=== PATIENT | female | born 1970 | race American Indian/Alaskan Native ===

== ENCOUNTER 2016-08-04 08:33 | Emergency (ER) | payer OTHER ==
[2016-08-04 08:37] VITALS: BMI 21.1
[2016-08-04 09:45] LABS: URINE APPEARANCE SLCLOUDY; URINE BILIRUBIN NEGATIVE (NEGATIVE); URINE COLOR STRAW; URINE GLUCOSE (UA) 3+ (NEGATIVE); URINE KETONE NEGATIVE (NEGATIVE); URINE NITRITE NEGATIVE (NEGATIVE); URINE UROBILINOGEN NEGATIVE E.U./dl (0.2-1.0)
[2016-08-04 09:57] LABS: URINE BLOOD 1+ (NEGATIVE); URINE LEUK ESTERASE 3+ (NEGATIVE); URINE PROTEIN 1+ (NEGATIVE)
--- NOTE | 2016-08-04 09:58 | PDOC ---
History of Present Illness - General History Source: Patient Exam Limitations: No Limitations - History of Present Illness Initial Comments: 08/04/16 10:07 The patient is a 62 year old female, with a significant past medical history of diabetes, hypertension, hyperlipidemia, hypothyroidism, and GERD, who presents to the emergency department complaining of abdominal pain since approximately 02 :00. Patient reports her abdominal pain is diffuse and constant. She reports associated dysuria and urinary frequency, but denies any flank pain, hematuria, or urgency. She reports decrease in appetite secondary to pain. The patient reports her last meal was at approximately 19:00 yesterday. The patient denies any nausea, vomiting, diarrhea, or constipation. Patient reports this is similar to an abdominal pain shes had in the past, which went away after she drank water, but not during this instance. She reports no alleviating or exacerbating factors. The patient denies any fever or chills. The patient denies any chest pain, shortness of breath, diaphoresis or palpitations. Allergies: None reported. Past Surgical History: None reported. Social History: Non-smoker. Denies alcohol or drug use. PCP: Dr. Ulrich <Magdy Joseph - Last Filed: 08/04/16 11:45> <Layla Ortega - Last Filed: 08/04/16 16:18> - General Chief Complaint: Urinary Problem Stated Complaint: Burning urine,pelvic pain Time Seen by Provider: 08/04/16 08:51 Past History <Magdy Joseph - Last Filed: 08/04/16 11:45> - Past Medical History Other medical history: denies - Psycho/Social/Smoking Cessation Hx Suicidal Ideation: No Smoking History: Never smoked Information on smoking cessation initiated: No Hx Alcohol Use: No Drug/Substance Use Hx: No Substance Use Type: None <Layla Ortega - Last Filed: 08/04/16 16:18> - Past Medical History Allergies/Adverse Reactions: Allergies Allergy/AdvReac Type Severity Reaction Status Date / Time No Known Allergies Allergy Verified 08/04/16 08:38 Home Medications: Ambulatory Orders Cephalexin Monohydrate [Keflex -] 500 mg PO BID #14 capsule 08/04/16 Enalapril Maleate 2.5 mg PO DAILY 08/04/16 Gemfibrozil 600 mg PO DAILY 08/04/16 Levothyroxine [Synthroid -] 50 mcg PO DAILY 08/04/16 Metformin HCl 500 mg PO BID 08/04/16 Nateglinide [Starlix (Nf)] 60 mg PO DAILY 08/04/16 Pantoprazole Sodium 40 mg PO DAILY 08/04/16 Phenazopyridine HCl [Pyridium] 100 mg PO TID PRN #6 tablet 08/04/16 Sitagliptin Phosphate [Januvia] 100 mg PO DAILY 08/04/16 Review of Systems - Review of Systems Able to Perform ROS?: Yes Comments:: 08/04/16 10:07 GENERAL/CONSTITUTIONAL: No fever or chills. No weakness. HEAD, EYES, EARS, NOSE AND THROAT: No change in vision. No ear pain or discharge. No sore throat. CARDIOVASCULAR: No chest pain or shortness of breath. RESPIRATORY: No cough, wheezing, or hemoptysis. GASTROINTESTINAL: Yes: +abdominal pain. No nausea, vomiting, diarrhea or constipation. GENITOURINARY: Yes: +dysuria, +frequency. No hematuria. MUSCULOSKELETAL: No joint or muscle swelling or pain. No neck or back pain. SKIN: No rash NEUROLOGIC: No headache, vertigo, loss of consciousness, or change in strength/ sensation. ENDOCRINE: No increased thirst. No abnormal weight change. HEMATOLOGIC/LYMPHATIC: No anemia, easy bleeding, or history of blood clots. ALLERGIC/IMMUNOLOGIC: No hives or skin allergy. <Magdy Joseph - Last Filed: 08/04/16 11:45> *Physical Exam - Vital Signs Last Vital Signs Temp Pulse Resp BP Pulse Ox 98 F 85 18 120/80 100 08/04/16 08:36 08/04/16 08:36 08/04/16 08:36 08/04/16 08:36 08/04/16 08:36 - Physical Exam Comments: 08/04/16 10:07 GENERAL: Awake, alert, and fully oriented, in no acute distress HEAD: No signs of trauma EYES: PERRLA, EOMI, sclera anicteric, conjunctiva clear ENT: Auricles normal inspection, hearing grossly normal, nares patent, oropharynx clear without exudates. Moist mucosa NECK: Normal ROM, supple, no lymphadenopathy, JVD, or masses LUNGS: Breath sounds equal, clear to auscultation bilaterally. No wheezes, and no crackles HEART: Regular rate and rhythm, normal S1 and S2, no murmurs, rubs or gallops ABDOMEN: Suprapubic tenderness. No CVA tenderness.Normoactive bowel sounds. No guarding, no rebound. No masses EXTREMITIES: Normal range of motion, no edema. No clubbing or cyanosis. No cords, erythema, or tenderness NEUROLOGICAL: Cranial nerves II through XII grossly intact. Normal speech, normal gait SKIN: Warm, Dry, normal turgor, no rashes or lesions noted. <Magdy Joseph - Last Filed: 08/04/16 11:45> - Vital Signs Last Vital Signs Temp Pulse Resp BP Pulse Ox 98 F 85 18 120/80 100 08/04/16 08:36 08/04/16 08:36 08/04/16 08:36 08/04/16 08:36 08/04/16 08:36 <Layla Ortega - Last Filed: 08/04/16 16:18> ED Treatment Course - LABORATORY CBC & Chemistry Diagram: 08/04/16 10:20 08/04/16 10:20 - ADDITIONAL ORDERS Additional order review: Laboratory Results 08/04/16 09:00 Urine Color Straw Urine Appearance Slcloudy Urine pH 6.0 Ur Specific [place] 1.008 Urine Protein 1+ H Urine Glucose (UA) 3+ H Urine Ketones Negative Urine Blood 1+ H Urine Nitrite Negative Urine Bilirubin Negative Urine Urobilinogen Negative Ur Leukocyte Esterase 3+ H Urine HCG, Qual Negative <Magdy Joseph - Last Filed: 08/04/16 11:45> - LABORATORY CBC & Chemistry Diagram: 08/04/16 10:20 08/04/16 10:20 - ADDITIONAL ORDERS Additional order review: Laboratory Results 08/04/16 09:00 Urine Color Straw Urine Appearance Slcloudy Urine pH 6.0 Ur Specific [place] 1.008 Urine Protein 1+ H Urine Glucose (UA) 3+ H Urine Ketones Negative Urine Blood 1+ H Urine Nitrite Negative Urine Bilirubin Negative Urine Urobilinogen Negative Ur Leukocyte Esterase 3+ H Urine HCG, Qual Negative <Layla Ortega - Last Filed: 08/04/16 16:18> Medical Decision Making - Medical Decision Making Pt found to have elevated blood glucose, UTI. She improved with IV NSS x2L with improved blood glucose. Also received toradol, rocephin, tylenol, and pyridium. I offered PO challenge, which she tolerated. No signs of pyelonephritis. Stable for DC home. <Layla Ortega - Last Filed: 08/04/16 16:18> *DC/Admit/Observation/Transfer - Attestations Scribe Attestion: 08/04/16 10:08 Documentation prepared by Magdy Joseph, acting as medical instructor for Layla Ortega MD. <Magdy Joseph - Last Filed: 08/04/16 11:45> - Discharge Dispostion Admit: No <Layla Ortega - Last Filed: 08/04/16 16:18> Diagnosis at time of Disposition: Hyperglycemia UTI (urinary tract infection) Qualifiers: Urinary tract infection type: acute cystitis Hematuria presence: without hematuria Qualified Code(s): N30.00 - Acute cystitis without hematuria - Discharge Dispostion Disposition: HOME Condition at time of disposition: Improved - Prescriptions Prescriptions: Cephalexin Monohydrate [Keflex -] 500 mg PO BID #14 capsule Phenazopyridine HCl [Pyridium] 100 mg PO TID PRN #6 tablet PRN Reason: painful urination - Referrals Referrals: Dom Ulrich [Primary Care Provider] - - Patient Instructions Printed Discharge Instructions: DI for Urinary Tract Infection (UTI), DI for Hyperglycemia -- Adult
[2016-08-04] MEDS ORDERED: KETOROLAC TROMETHAMINE 15 MG/ML VIAL IVPUSH ONE (09:59)
[2016-08-04] MEDS ORDERED: SODIUM CHLORIDE 1,000 ML IV STA ×2 (09:59→11:01)
[2016-08-04] MEDS ORDERED: KETOROLAC TROMETHAMINE 15 MG/ML VIAL ONE (10:06)
[2016-08-04 10:17] LABS: URINE RBC 8 /hpf (0-3); URINE WBC 163 /hpf (3-5)
[2016-08-04] MEDS ORDERED: CEFTRIAXONE 1 GM in DEXTROSE 5%-WATER - 50 ML IVPB ONE (10:28)
[2016-08-04 10:38] LABS: BASOPHIL 0.5 % (0-2.0); EOSINOPHIL 0.3 % (0-4.5); MCH 28.5 pg (25.7-33.7); MCHC 34.4 g/dl (32.0-36.0); MEAN CELL VOLUME 82.9 fl (80-96); MEAN PLT VOLUME 7.7 fl (7.5-11.1); NEUTROPHILS 83.2 % (42.8-82.8); PLATELET COUNT 314 K/MM3 (134-434)
[2016-08-04 10:58] LABS: ALBUMIN 3.8 g/dl (3.4-5.0); ALK PHOS 91 U/L (45-117); ANION GAP 11 (8-16); BILIRUBIN,TOTAL 0.3 mg/dL (0.2-1.0); CALCIUM 9.5 mg/dL (8.5-10.1); CO2 26 mmol/L (21-32); CREATININE 0.7 mg/dL (0.55-1.02); SGOT/AST 17 U/L (15-37); SGPT/ALT 24 U/L (12-78); TOT PROT 7.5 g/dl (6.4-8.2)
[2016-08-04 11:03] LABS: GLUCOSE,RANDOM 321 mg/dL (74-106)
[2016-08-04] MEDS ORDERED: CEFTRIAXONE 50 ML ONE (11:07)
[2016-08-04] MEDS ORDERED: ACETAMINOPHEN 1000 MG/100 ML VIAL (NON FORMULARY) IVPB ONE (13:28)
[2016-08-04] MEDS ORDERED: ACETAMINOPHEN INJECTION 100 ML IVPB ONE (13:36)
[2016-08-04] MEDS ORDERED: HEMOQUE TEST 1 EACH EACH ONE (13:37)
[2016-08-04] MEDS ORDERED: PHENAZOPYRIDINE HCL 100 MG TABLET (FP) PO ONE (14:35)
[2016-08-04] MEDS ORDERED: PHENAZOPYRIDINE HCL 100 MG TABLET (FP) ONE (14:59)
[2016-08-04 15:13] VITALS: BP 109/78; PULSE 89; TEMP 97.9
== END 2016-08-04 15:12 | disposition home or self-care (01) ==
LOC: JER 08:33
PROC: 3E0337Z Introduction of Electrolytic and Water Balance Substance into Peripheral Vein, Percutaneous Approach (ICD-10-PCS; principal; 2016-08-04)
PROC: 3E033NZ Introduction of Analgesics, Hypnotics, Sedatives into Peripheral Vein, Percutaneous Approach (ICD-10-PCS; 2016-08-04)
DX: N30.00 Acute cystitis without hematuria (principal); E11.65 Type 2 diabetes mellitus with hyperglycemia; Z79.84 Long term (current) use of oral hypoglycemic drugs; I10 Essential (primary) hypertension; E03.9 Hypothyroidism, unspecified; E78.00 Pure hypercholesterolemia, unspecified; K21.9 Gastro-esophageal reflux disease without esophagitis
CPT/HCPCS: 36415; 80053; 81003; 81015; 84703; 85025; 87086; 87186; 96361; 96374; 99283-25

== ENCOUNTER 2016-08-07 00:55 | Emergency (ER) | payer OTHER ==
[2016-08-07 01:14] VITALS: BP 136/72; PULSE 89; TEMP 98.4; BMI 25.4
--- NOTE | 2016-08-07 02:14 | PDOC ---
History of Present Illness - General Stated Complaint: PAIN Time Seen by Provider: 08/07/16 01:10 History Source: Patient, Family Exam Limitations: No Limitations - History of Present Illness Travel History: No Initial Comments: 08/07/16 02:11 46yo Female patient presents to ED c/o dysuria, burning, frequency, pressure, cramping, getting worse since 9pm. Patient state she was seen in this ED and diagnosed with UTI. Patient denies vaginal bleeding, back pain, fever, chills, n /v/d, or any other complaints at this time. LNMP: 08-04-2016 Timing/Duration: reports: getting worse, changing over time Quality: reports: moderate Abdominal Pain Onset Location: reports: suprapubic Pain Radiation: reports: no radiation Activities at Onset: reports: no specific activity Treatment Prior to Arrive: worse with: analgesics, antacids, cold pack, heat, laxative, enema, other Aggravating Factors: worse with: None, Defecation, Eating, Emotional upset, Exertion, [place], Movement, Voiding, Change in position Alleviating Factors: worse with: None, Belching, Shallow Breathing, Defecation, Eating, Holding Breath, Passing Gas, Change in Position, Rest, Voiding, Vomiting Past History - Travel Traveled outside of the country in the last 30 days: No Close contact w/someone who was outside of country & ill: No - Past Medical History Allergies/Adverse Reactions: Allergies Allergy/AdvReac Type Severity Reaction Status Date / Time No Known Allergies Allergy Verified 08/07/16 01:08 Home Medications: Ambulatory Orders Cephalexin Monohydrate [Keflex -] 500 mg PO BID #14 capsule 08/04/16 Enalapril Maleate 2.5 mg PO DAILY 08/04/16 Gemfibrozil 600 mg PO DAILY 08/04/16 Levothyroxine [Synthroid -] 50 mcg PO DAILY 08/04/16 Metformin HCl 500 mg PO BID 08/04/16 Nateglinide [Starlix (Nf)] 60 mg PO DAILY 08/04/16 Pantoprazole Sodium 40 mg PO DAILY 08/04/16 Phenazopyridine HCl [Pyridium] 100 mg PO TID PRN #6 tablet 08/04/16 Sitagliptin Phosphate [Januvia] 100 mg PO DAILY 08/04/16 Levofloxacin [Levaquin] 500 mg PO DAILY #7 tablet 08/07/16 Phenazopyridine HCl [Pyridium] 100 mg PO TID #9 tablet 08/07/16 - Psycho/Social/Smoking Cessation Hx Suicidal Ideation: No Smoking History: Former smoker Have you smoked in the past 12 months: No Information on smoking cessation initiated: No Hx Alcohol Use: No Drug/Substance Use Hx: No Substance Use Type: None Abd/GI Specific PMHX - Complaint Specific PMHX Colitis: No Diverticulitis: No Gall Bladder Disease: No GERD: No Hepatitis: No Irritable Bowel Synd (IBS): No Pancreatitis: No GI Ulcer Disease: No Review of Systems - Review of Systems Able to Perform ROS?: Yes Is the patient limited [place]alander proficient: No Constitutional: No: Chills, Fever, Weakness Respiratory: No: Cough, Shortness of Breath, Stridor, Wheezing Cardiac (ROS): No: Chest Pain ABD/GI: Yes: Abdominal cramping. No: Constipated, Diarrhea, Nausea, Poor Appetite, Poor Fluid Intake, Rectal Bleeding, Vomiting : Yes: Burning, Dysuria, Frequency, Pain, Urgency. No: Discharge, Flank Pain , Hematuria Musculoskeletal: No: Back Pain Integumentary: No: Bruising, Erythema, Rash Neurological: No: Headache, Seizure, Ataxia, Dizziness All Other Systems: Reviewed and Negative *Physical Exam - Vital Signs Last Vital Signs Temp Pulse Resp BP Pulse Ox 98.4 F 89 20 136/72 98 08/07/16 01:08 08/07/16 01:08 08/07/16 01:08 08/07/16 01:08 08/07/16 01:08 - Physical Exam General Appearance: Yes: Nourished, Appropriately Dressed. No: Apparent Distress, Mild Distress, Moderate Distress, Severe Distress Neck: positive: Trachea midline, Supple. negative: Lymphadenopathy (R), Lymphadenopathy (L) Respiratory/Chest: positive: Lungs Clear, Normal Breath Sounds. negative: Respiratory Distress, Accessory Muscle Use, Labored Respiration, Rapid RR, Stridor, Wheezing Cardiovascular: positive: Regular Rhythm, Regular Rate Gastrointestinal/Abdominal: positive: Tender, Soft, Decreased BS, Tenderness ( Lower Pelvic). negative: Distended, Guarding, Rebound Musculoskeletal: positive: Normal Inspection. negative: CVA Tenderness, Vertebral Tenderness Extremity: positive: Normal Capillary Refill, Normal Inspection, Normal Range of Motion. negative: Swelling, Calf Tenderness, Erythema, Inflammation Integumentary: positive: Normal Color, Dry, Warm Neurologic: positive: custom shoemaker II-XII NML intact, Fully Oriented, Alert, Normal Mood/ Affect, Normal Response, Motor Strength 5/5 *DC/Admit/Observation/Transfer Diagnosis at time of Disposition: Symptoms of urinary tract infection - Discharge Dispostion Disposition: HOME Condition at time of disposition: Stable Admit: No - Prescriptions Prescriptions: Levofloxacin [Levaquin] 500 mg PO DAILY #7 tablet Phenazopyridine HCl [Pyridium] 100 mg PO TID #9 tablet - Patient Instructions Printed Discharge Instructions: DI for Urinary Tract Infection (UTI) Additional Instructions: FOLLOW UP WITH DR. CHUA THIS WEEK. CALL TO SCHEDULE CLOSER APPOINTMENT IF YOU CAN. STOP KEFELX AND START LEVAQUIN. DRINK PLENTY FLUIDS AND CHECK BLOOD SUGAR BEFORE EACH MEAL. IF YOUR SYMPTOMS WORSEN, SUCH NAUSEA, VOMITING, BACK PAIN, FEVER, CHILLS, CHEST PAIN, DIFFICULTY BREATHING, WORSENING ABDOMINAL PAIN , RETURN FOR EVALUATION. Print Language: NEPALI
[2016-08-07 02:22] LABS: URINE APPEARANCE CLEAR; URINE BILIRUBIN NEGATIVE (NEGATIVE); URINE BLOOD NEGATIVE (NEGATIVE); URINE COLOR LTYELLOW; URINE GLUCOSE (UA) 2+ (NEGATIVE); URINE KETONE NEGATIVE (NEGATIVE); URINE LEUK ESTERASE NEGATIVE (NEGATIVE); URINE NITRITE NEGATIVE (NEGATIVE); URINE PROTEIN NEGATIVE (NEGATIVE); URINE UROBILINOGEN NEGATIVE E.U./dl (0.2-1.0)
[2016-08-07] MEDS ORDERED: HEMOQUE TEST 1 EACH EACH ONE (03:08)
[2016-08-07] MEDS ORDERED: PHENAZOPYRIDINE HCL 100 MG TABLET (FP) PO ONE (03:40)
[2016-08-07] MEDS ORDERED: PHENAZOPYRIDINE HCL 100 MG TABLET (FP) ONE (03:44)
[2016-08-07] MEDS ORDERED: LEVOFLOXACIN 500 MG TABLET (FP) ONE (03:45)
[2016-08-07] MEDS ORDERED: LEVOFLOXACIN 250 MG TABLET (FP) ONE (03:45)
[2016-08-07] MEDS ORDERED: LEVOFLOXACIN 250 MG TABLET (FP) PO SCH (10:00)
== END 2016-08-07 03:49 | disposition home or self-care (01) ==
LOC: JER 00:55
DX: N39.0 Urinary tract infection, site not specified (principal); E11.9 Type 2 diabetes mellitus without complications; Z79.84 Long term (current) use of oral hypoglycemic drugs
CPT/HCPCS: 81003; 84703; 87086; 99281-25

== ENCOUNTER 2016-08-07 22:29 | Emergency (ER) | payer OTHER ==
[2016-08-07 22:50] VITALS: BP 112/79; PULSE 89; TEMP 98.3; BMI 21.1
--- NOTE | 2016-08-07 23:32 | PDOC ---
History of Present Illness - General Chief Complaint: Weakness Stated Complaint: WEAKNESS Time Seen by Provider: 08/07/16 23:31 History Source: Patient - History of Present Illness Initial Comments: 08/07/16 23:49 46 year old female this is the third visit to the ER for similar complaints. patient seen early am with symptoms of cystitis. patient started on levaquin. now with vomiting and suprapubic pain and right flank pain. Past History - Past Medical History Allergies/Adverse Reactions: Allergies Allergy/AdvReac Type Severity Reaction Status Date / Time No Known Allergies Allergy Verified 08/07/16 22:45 Home Medications: Ambulatory Orders Enalapril Maleate 2.5 mg PO DAILY 08/04/16 Levothyroxine [Synthroid -] 50 mcg PO DAILY 08/04/16 Metformin HCl 500 mg PO BID 08/04/16 Nateglinide [Starlix (Nf)] 60 mg PO DAILY 08/04/16 Pantoprazole Sodium 40 mg PO DAILY 08/04/16 Sitagliptin Phosphate [Januvia] 100 mg PO DAILY 08/04/16 Levofloxacin [Levaquin] 500 mg PO DAILY #7 tablet 08/07/16 Cefpodoxime Proxetil [Vantin -] 200 mg PO Q12H #20 tablet 08/08/16 Cefuroxime Axetil [Cefuroxime] 250 mg PO BID #20 tablet 08/08/16 Diabetes: Yes - Immunization History Immunization Up to Date: Yes - Psycho/Social/Smoking Cessation Hx Suicidal Ideation: No Smoking History: Never smoked Have you smoked in the past 12 months: No Information on smoking cessation initiated: No Hx Alcohol Use: No Drug/Substance Use Hx: No Substance Use Type: None Review of Systems - Review of Systems Able to Perform ROS?: Yes Is the patient limited Hebrew proficient: No ABD/GI: Yes: Nausea, Vomiting, Abdominal cramping : Yes: Dysuria, Flank Pain, Pain *Physical Exam - Vital Signs Last Vital Signs Temp Pulse Resp BP Pulse Ox 98.3 F 89 17 112/79 100 08/07/16 22:45 08/07/16 22:45 08/07/16 22:45 08/07/16 22:45 08/07/16 22:45 - Physical Exam General Appearance: Yes: Appropriately Dressed Respiratory/Chest: positive: Lungs Clear, Normal Breath Sounds Gastrointestinal/Abdominal: positive: Normal Bowel Sounds, Tender (suprapubic), Soft Musculoskeletal: positive: CVA Tenderness, CVA Tenderness (R) Extremity: positive: Normal Capillary Refill, Normal Inspection, Normal Range of Motion Integumentary: positive: Normal Color, Dry, Warm Neurologic: positive: Fully Oriented, Alert, Normal Mood/Affect ED Treatment Course - LABORATORY CBC & Chemistry Diagram: 08/07/16 23:50 08/08/16 03:55 Medical Decision Making - Medical Decision Making 08/08/16 03:41 patient is feeling better. will repeat sodium. repeat sodium is 131. *DC/Admit/Observation/Transfer Diagnosis at time of Disposition: Pyelonephritis, Hyponatremia - Discharge Dispostion Disposition: HOME - Prescriptions Prescriptions: Cefuroxime Axetil [Cefuroxime] 250 mg PO BID #20 tablet Cefpodoxime Proxetil [Vantin -] 200 mg PO Q12H #20 tablet - Referrals Referrals: Dom Ulrich [Primary Care Provider] - - Patient Instructions Printed Discharge Instructions: DI for Kidney Infection Additional Instructions: drink plenty of fluids continue Cefpodoxime as ordered/ complete the antibiotics follow up with your doctor as soon as possible. return to the ER if symptoms worsen.
[2016-08-07] MEDS ORDERED: SODIUM CHLORIDE 1,000 ML IV STA (23:34)
[2016-08-07] MEDS ORDERED: ONDANSETRON 4 MG/2 ML VIAL IVPB ONE (23:35)
--- NOTE | 2016-08-07 23:44 | PDOC ---
*Physical Exam - Vital Signs Last Vital Signs Temp Pulse Resp BP Pulse Ox 98.3 F 89 17 112/79 100 08/07/16 22:45 08/07/16 22:45 08/07/16 22:45 08/07/16 22:45 08/07/16 22:45 ED Treatment Course - LABORATORY CBC & Chemistry Diagram: 08/07/16 23:50 08/08/16 03:55 Medical Decision Making - Medical Decision Making 08/07/16 23:44 agree with care from SAMANTHA Menard *DC/Admit/Observation/Transfer Diagnosis at time of Disposition: Pyelonephritis - Discharge Dispostion Disposition: HOME - Prescriptions Prescriptions: Cefuroxime Axetil [Cefuroxime] 250 mg PO BID #20 tablet Cefpodoxime Proxetil [Vantin -] 200 mg PO Q12H #20 tablet - Referrals Referrals: Dom Ulrich [Primary Care Provider] - - Patient Instructions Printed Discharge Instructions: DI for Kidney Infection Additional Instructions: drink plenty of fluids continue Cefpodoxime as ordered/ complete the antibiotics follow up with your doctor as soon as possible. return to the ER if symptoms worsen.
[2016-08-08] MEDS ORDERED: ONDANSETRON 4 MG/2 ML VIAL ONE (00:01)
[2016-08-08] MEDS ORDERED: CEFTRIAXONE 1 GM in DEXTROSE 5%-WATER - 100 ML IVPB ONE (00:02)
[2016-08-08] MEDS ORDERED: CEFTRIAXONE 50 ML ONE (00:03)
[2016-08-08 00:35] LABS: URINE APPEARANCE CLEAR; URINE BILIRUBIN NEGATIVE (NEGATIVE); URINE BLOOD NEGATIVE (NEGATIVE); URINE COLOR AMBER; URINE GLUCOSE (UA) 3+ (NEGATIVE); URINE KETONE NEGATIVE (NEGATIVE); URINE LEUK ESTERASE NEGATIVE (NEGATIVE); URINE NITRITE POSITIVE (NEGATIVE); URINE UROBILINOGEN NEGATIVE E.U./dl (0.2-1.0)
[2016-08-08 00:35] LABS: BASOPHIL 0.3 % (0-2.0); EOSINOPHIL 0.6 % (0-4.5); MCH 28.4 pg (25.7-33.7); MCHC 35.3 g/dl (32.0-36.0); MEAN CELL VOLUME 80.4 fl (80-96); MEAN PLT VOLUME 8.1 fl (7.5-11.1); NEUTROPHILS 75.8 % (42.8-82.8); PLATELET COUNT 323 K/MM3 (134-434); RDW 13.2 % (11.6-15.6); WHITE BLOOD COUNT 8.8 K/mm3 (4.0-10.0)
[2016-08-08 00:56] LABS: ALBUMIN 3.8 g/dl (3.4-5.0); ALK PHOS 88 U/L (45-117); ANION GAP 15 (8-16); BILIRUBIN,TOTAL 0.3 mg/dL (0.2-1.0); CALCIUM 9.4 mg/dL (8.5-10.1); CO2 22 mmol/L (21-32); CREATININE 0.7 mg/dL (0.55-1.02); GLUCOSE,RANDOM 244 mg/dL (74-106); SGOT/AST 70 U/L (15-37); SGPT/ALT 42 U/L (12-78); TOT PROT 7.8 g/dl (6.4-8.2)
[2016-08-08 00:57] LABS: URINE PROTEIN 2+ (NEGATIVE)
[2016-08-08] MEDS ORDERED: SODIUM CHLORIDE 1,000 ML IV STA (01:00)
[2016-08-08 01:11] LABS: URINE BACTERIA RARE /hpf (NONE SEEN); URINE MUCUS RARE; URINE RBC 6 /hpf (0-3); URINE WBC 1 /hpf (3-5)
[2016-08-08 04:29] LABS: CALCIUM 8.2 mg/dL (8.5-10.1); COCKROFT - GAULT 90.6015; CREATININE 0.6 mg/dL (0.55-1.02)
== END 2016-08-08 05:01 | disposition home or self-care (01) ==
LOC: JER 22:29
PROC: 3E0337Z Introduction of Electrolytic and Water Balance Substance into Peripheral Vein, Percutaneous Approach (ICD-10-PCS; principal; 2016-08-07)
PROC: 3E03329 Introduction of Other Anti-infective into Peripheral Vein, Percutaneous Approach (ICD-10-PCS; 2016-08-07)
PROC: 3E033GC Introduction of Other Therapeutic Substance into Peripheral Vein, Percutaneous Approach (ICD-10-PCS; 2016-08-07)
DX: N12 Tubulo-interstitial nephritis, not specified as acute or chronic (principal); I10 Essential (primary) hypertension; Z79.84 Long term (current) use of oral hypoglycemic drugs; E03.9 Hypothyroidism, unspecified
CPT/HCPCS: 36415; 80048; 80053; 81003; 81015; 85025; 87086; 99283-25

== ENCOUNTER 2017-10-02 17:07 | Emergency (ER) | payer OTHER ==
--- NOTE | 2017-10-02 17:15 | PDOC ---
Rapid Medical Evaluation Time Seen by Provider: 10/02/17 17:13 Medical Evaluation: Allergies Allergy/AdvReac Type Severity Reaction Status Date / Time No Known Allergies Allergy Verified 08/07/16 22:45 10/02/17 17:13 have performed a brief in-person evaluation of this patient. The patient presents with a chief complaint of: lower back pain s/p slip and fall in bath tub today. Ambulatory. No head injury, LOC, [place], dizziness, neck or hip pain. H/o DM and HTN Pertinent physical exam findings:+ttp to mid lower back I have ordered the following:xray The patient will proceed to the ED for further evaluation 10/02/17 17:16
[2017-10-02 17:18] VITALS: BP 120/75; PULSE 76; TEMP 98; BMI 19.5
--- NOTE | 2017-10-02 18:24 | PDOC ---
History of Present Illness - General Chief Complaint: Back Pain Stated Complaint: FALL INJURY Time Seen by Provider: 10/02/17 17:13 - History of Present Illness Initial Comments: 47-year-old female with a past medical history significant for diabetes dyslipidemia hypothyroidism and hypertension presents for evaluation of buttock pain after a fall at home today. She denies any radiation of symptoms her pain is localized to the mid buttock sacral area. 10/02/17 18:20 Past History - Past Medical History Allergies/Adverse Reactions: Allergies Allergy/AdvReac Type Severity Reaction Status Date / Time No Known Allergies Allergy Verified 10/02/17 17:14 Home Medications: Ambulatory Orders Enalapril Maleate 2.5 mg PO DAILY 08/04/16 Levothyroxine [Synthroid -] 50 mcg PO DAILY 08/04/16 Nateglinide [Starlix (Nf)] 60 mg PO DAILY 08/04/16 Pantoprazole Sodium 40 mg PO DAILY 08/04/16 Sitagliptin Phosphate [Januvia] 100 mg PO DAILY 08/04/16 metFORMIN HCL [Metformin HCl] 500 mg PO BID 08/04/16 Cefpodoxime Proxetil [Vantin -] 200 mg PO Q12H #20 tablet 08/08/16 Diclofenac Sodium [Voltaren] 100 gm TP ASDIR 10/02/17 Docusate Sodium [Colace] 100 mg PO BID #60 capsule 10/02/17 Gabapentin [Neurontin] 300 mg PO ASDIR 10/02/17 Insulin (LOG) Aspart [NovoLOG -] 0 units SQ BID 10/02/17 Norgestimate-Ethinyl Estradiol [Tri-Sprintec Tablet] 1 each PO ASDIR 10/02/17 Simvastatin [Zocor] 10 mg PO HS 10/02/17 COPD: No Diabetes: Yes Hypercholesterolemia: Yes Thyroid Disease: Yes (HYPO) - Immunization History Immunization Up to Date: Yes - Suicide/Smoking/Psychosocial Hx Smoking History: Never smoked Have you smoked in the past 12 months: No Hx Alcohol Use: No Drug/Substance Use Hx: No Substance Use Type: None Review of Systems - Review of Systems Musculoskeletal: Yes: See HPI, Back Pain All Other Systems: Reviewed and Negative *Physical Exam - Vital Signs Last Vital Signs Temp Pulse Resp BP Pulse Ox 98 F 76 19 120/75 100 10/02/17 17:14 10/02/17 17:14 10/02/17 17:14 10/02/17 17:14 10/02/17 17:14 - Physical Exam Comments: Lumbar spine range of motion is decreased she has 5 out of 5 strength in bilateral lower extremities including EHL, plantar flexion, dorsiflexion, quadriceps, hamstrings, hip flexion. She has no gross sensorimotor deficits she' s neurovascularly intact. She has exquisite tenderness over the area of the sacrococcygeal junction. 10/02/17 18:21 Medical Decision Making - Medical Decision Making There appears to be a fracture at the sacrococcygeal junction. 10/02/17 18:22 *DC/Admit/Observation/Transfer Diagnosis at time of Disposition: Fractured coccyx - Discharge Dispostion Disposition: HOME Condition at time of disposition: Stable Decision to Admit order: No - Referrals Referrals: Dom Ulrich [Primary Care Provider] - Elías Khan MD [Staff Physician] - - Patient Instructions Printed Discharge Instructions: Coccyx Fracture, DI for Coccyx Fracture Additional Instructions: I have phoned in a stool softener for you. You should also purchase a donut pad at the drug store which will help with her pain while your sitting. Return to the emergency room should her symptoms worsen or go unresolved. Return to the emergency room if you experience any urinary or bowel incontinence or retention. You may take Tylenol for pain. Please follow-up with spine surgery within the next 1-2 days. - Post Discharge Activity
== END 2017-10-02 18:38 | disposition home or self-care (01) ==
LOC: JERFT 17:07
DX: S32.2XXA Fracture of coccyx, initial encounter for closed fracture (principal); W18.2XXA Fall in (into) shower or empty bathtub, initial encounter; Y93.E1 Activity, personal bathing and showering; Y92.031 Bathroom in apartment as the place of occurrence of the external cause; Y99.8 Other external cause status; I10 Essential (primary) hypertension; E03.9 Hypothyroidism, unspecified; E11.9 Type 2 diabetes mellitus without complications; Z79.4 Long term (current) use of insulin; Z79.84 Long term (current) use of oral hypoglycemic drugs
CPT/HCPCS: 72100-TC-FY; 99281-25

== ENCOUNTER 2017-12-06 16:27 | Emergency (ER) | payer OTHER ==
[2017-12-06 16:31] VITALS: BP 118/78; PULSE 89; TEMP 98.7; BMI 19.5
[2017-12-06] MEDS ORDERED: ONDANSETRON *ODT* 4 MG TABLET SL ONE (17:22)
[2017-12-06 17:30] LABS: URINE APPEARANCE CLEAR; URINE BILIRUBIN NEGATIVE (<2.0 mg/dL); URINE COLOR STRAW; URINE GLUCOSE (UA) 1+ (NEGATIVE); URINE KETONE NEGATIVE (NEGATIVE); URINE NITRITE NEGATIVE (NEGATIVE); URINE PROTEIN NEGATIVE (NEGATIVE); URINE UROBILINOGEN NEGATIVE mg/dL (0.2-1.0)
[2017-12-06 17:31] LABS: URINE LEUK ESTERASE 1+ (NEGATIVE)
[2017-12-06 17:32] LABS: HCG,QUALITATIVE URINE Negative
[2017-12-06 17:36] LABS: EPI CELLS RARE /HPF (FEW); URINE BACTERIA RARE /hpf (NONE SEEN); URINE MUCUS RARE
--- NOTE | 2017-12-06 17:38 | PDOC ---
History of Present Illness - General Chief Complaint: Urinary Problem Stated Complaint: urinary burning nausea and vomiting Time Seen by Provider: 12/06/17 17:09 History Source: Patient Exam Limitations: No Limitations - History of Present Illness Travel History: No Initial Comments: 12/06/17 17:21 47-year-old female presents to ED with urinary complaints for the past few days now associated with nausea and one episode of vomiting this afternoon. Patient denies fever, chills states had frequent urinary tract infection similar to today's presentation. Patient states that her last fingerstick yesterday was 179 and has no other complaints at this time. Timing/Duration: reports: getting worse Quality: reports: mild, fullness Abdominal Pain Onset Location: reports: suprapubic Pain Radiation: reports: no radiation Aggravating Factors: improves with: Voiding Alleviating Factors: improves with: None Past History - Travel Traveled outside of the country in the last 30 days: No - Past Medical History Allergies/Adverse Reactions: Allergies Allergy/AdvReac Type Severity Reaction Status Date / Time No Known Allergies Allergy Verified 12/06/17 16:31 Home Medications: Ambulatory Orders Enalapril Maleate 2.5 mg PO DAILY 08/04/16 Levothyroxine [Synthroid -] 50 mcg PO DAILY 08/04/16 Nateglinide [Starlix (Nf)] 60 mg PO DAILY 08/04/16 Pantoprazole Sodium 40 mg PO DAILY 08/04/16 Sitagliptin Phosphate [Januvia] 100 mg PO DAILY 08/04/16 metFORMIN HCL [Metformin HCl] 500 mg PO BID 08/04/16 Cefpodoxime Proxetil [Vantin -] 200 mg PO Q12H #20 tablet 08/08/16 Diclofenac Sodium [Voltaren] 100 gm TP ASDIR 10/02/17 Docusate Sodium [Colace] 100 mg PO BID #60 capsule 10/02/17 Gabapentin [Neurontin] 300 mg PO ASDIR 10/02/17 Insulin (LOG) Aspart [NovoLOG -] 0 units SQ BID 10/02/17 Norgestimate-Ethinyl Estradiol [Tri-Sprintec Tablet] 1 each PO ASDIR 10/02/17 Simvastatin [Zocor] 10 mg PO HS 10/02/17 COPD: No Diabetes: Yes Hypercholesterolemia: Yes Thyroid Disease: Yes (HYPO) - Immunization History Immunization Up to Date: Yes - Suicide/Smoking/Psychosocial Hx Smoking History: Never smoked Have you smoked in the past 12 months: No Information on smoking cessation initiated: No Hx Alcohol Use: No Drug/Substance Use Hx: No Substance Use Type: None Patient Lives Alone: No Lives with/in: spouse/SO Abd/GI Specific PMHX - Complaint Specific PMHX Colitis: No Diverticulitis: No Gall Bladder Disease: No GERD: No Hepatitis: No Irritable Bowel Synd (IBS): No Pancreatitis: No GI Ulcer Disease: No Review of Systems - Review of Systems Able to Perform ROS?: No Constitutional: No: Symptoms Reported HEENTM: No: Symptoms Reported Respiratory: No: Symptoms reported ABD/GI: Yes: Nausea, Vomiting, Abdominal cramping : Yes: Burning, Dysuria, Frequency, Urgency Integumentary: No: Symptoms Reported Neurological: No: Symptoms reported Endocrine: No: Symptoms Reported Hematologic/Lymphatic: No: Symptoms Reported *Physical Exam - Vital Signs Last Vital Signs Temp Pulse Resp BP Pulse Ox 98.7 F 89 16 118/78 100 12/06/17 16:29 12/06/17 16:29 12/06/17 16:29 12/06/17 16:29 12/06/17 16:29 - Physical Exam General Appearance: Yes: Nourished, Appropriately Dressed. No: Apparent Distress Gastrointestinal/Abdominal: positive: Normal Bowel Sounds, Soft. negative: Distended, Tenderness Musculoskeletal: negative: CVA Tenderness Integumentary: positive: Normal Color, Warm, Moist Neurologic: positive: Motor Strength 5/5 (ambulatory) Medical Decision Making - Medical Decision Making 12/06/17 18:00 Patient urinary complaints opacities now social 1 episode of vomiting after feeling nauseous this afternoon. Patient exam had no abdominal tenderness, CVA tenderness or other acute findings. Patient ordered for urinalysis urine urine culture along with Zofran ODT 12/06/17 18:14 Laboratory Tests 12/06/17 17:20 Urine Glucose (UA) 1+ H D Urine Blood 1+ H Ur Leukocyte Esterase 1+ H Urine WBC (Auto) 20 Urine Bacteria Rare Urine culture was sent. Patient will be discharged home with antibiotics along with Zofran and Pyridium *DC/Admit/Observation/Transfer Diagnosis at time of Disposition: UTI (urinary tract infection) - Discharge Dispostion Disposition: HOME Condition at time of disposition: Improved - Referrals Referrals: Dom Ulrich [Primary Care Provider] - - Patient Instructions Printed Discharge Instructions: DI for Urinary Tract Infection (UTI) Additional Instructions: Please take antibiotics as prescribed along with the other medications including 1 for nausea and 1 for the pain. Please follow up with your doctor and check your glucose routinely. Drink plenty of fluids and clean from front to back. - Post Discharge Activity
[2017-12-06] MEDS ORDERED: ONDANSETRON *ODT* 4 MG TABLET ONE ×2 (18:16→18:18)
== END 2017-12-06 18:35 | disposition home or self-care (01) ==
LOC: JER 16:27
DX: N39.0 Urinary tract infection, site not specified (principal); E78.00 Pure hypercholesterolemia, unspecified; E03.9 Hypothyroidism, unspecified; E11.9 Type 2 diabetes mellitus without complications; Z79.4 Long term (current) use of insulin; Z79.84 Long term (current) use of oral hypoglycemic drugs
CPT/HCPCS: 81003; 81015; 84703; 87086; 87186; 99282-25; Q0162

== ENCOUNTER 2018-03-31 22:03 | Emergency (ER) | payer OTHER ==
[2018-03-31 22:14] VITALS: TEMP 97.5; BMI 24.0
--- NOTE | 2018-03-31 23:20 | PDOC ---
History of Present Illness - General Chief Complaint: Urinary Problem Stated Complaint: URINARY PROBLEM Time Seen by Provider: 03/31/18 23:13 - History of Present Illness Initial Comments: 03/31/18 23:40 The patient is a 48 year old female with a history of HLD, DM, Hypothyroid, UTIs who presents for evaluation of pain on urination. The patient is accompanied by family who assist in providing the history. They note a several day history of worsening burning pain with urination and poorly described lower abdominal pain with some associated nausea prompting her presentation to the ED for further evaluation. They note that her symptoms feel similar to prior UTIs she has experienced. They otherwise deny fevers, chills, SOB, chest pain, vomiting, or changes with bowel movements. Past History - Past Medical History Allergies/Adverse Reactions: Allergies Allergy/AdvReac Type Severity Reaction Status Date / Time No Known Allergies Allergy Verified 03/31/18 22:27 Home Medications: Ambulatory Orders Enalapril Maleate 2.5 mg PO DAILY 08/04/16 Levothyroxine [Synthroid -] 50 mcg PO DAILY 08/04/16 Nateglinide [Starlix (Nf)] 60 mg PO DAILY 08/04/16 Pantoprazole Sodium 40 mg PO DAILY 08/04/16 Sitagliptin Phosphate [Januvia] 100 mg PO DAILY 08/04/16 metFORMIN HCL [Metformin HCl] 500 mg PO BID 08/04/16 Cefpodoxime Proxetil [Vantin -] 200 mg PO Q12H #20 tablet 08/08/16 Diclofenac Sodium [Voltaren] 100 gm TP ASDIR 10/02/17 Docusate Sodium [Colace] 100 mg PO BID #60 capsule 10/02/17 Gabapentin [Neurontin] 300 mg PO ASDIR 10/02/17 Insulin (LOG) Aspart [NovoLOG -] 0 units SQ BID 10/02/17 Norgestimate-Ethinyl Estradiol [Tri-Sprintec Tablet] 1 each PO ASDIR 10/02/17 Simvastatin [Zocor] 10 mg PO HS 10/02/17 Nitrofurantoin Monohyd/M-Cryst [Macrobid -] 100 mg PO BID #14 capsule 12/06/17 Ondansetron [Zofran Odt -] 4 mg SL TID PRN #12 od.tablet 12/06/17 Phenazopyridine HCl [Pyridium] 200 mg PO TID #6 tablet 12/06/17 levoFLOXacin [Levaquin] 750 mg PO DAILY #5 tab 12/10/17 Nitrofurantoin Monohyd/M-Cryst [Macrobid -] 100 mg PO BID #14 capsule 04/01/18 Ondansetron HCl [Zofran] 4 mg PO TID PRN #12 tablet 04/01/18 Phenazopyridine HCl [Pyridium] 200 mg PO TID #6 tablet 04/01/18 COPD: No Diabetes: Yes Hypercholesterolemia: Yes Thyroid Disease: Yes (HYPO) - Immunization History Immunization Up to Date: Yes - Suicide/Smoking/Psychosocial Hx Smoking History: Never smoked Have you smoked in the past 12 months: No Information on smoking cessation initiated: No Hx Alcohol Use: No Drug/Substance Use Hx: No Substance Use Type: None Review of Systems - Review of Systems Comments:: 03/31/18 23:42 Constitutional: No fevers, chills, fatigue, malaise HEENT: No Rhinorrhea, nasal congestion, visual changes Cardiovascular: No chest pain, syncope, palpitations, lightheadedness Respiratory: No Cough, SOB, Hemoptysis, Gastrointestinal: Suprapubic abdominal pain. No Nausea, Vomiting, Constipation , Diarrhea, Melena Genitourinary: Dysuria. No Frequency, Urgency, Hesitancy, Hematuria, Flank pain Musculoskeletal: No Myalgia, arthralgia Skin: No rashes, itching, bruising, pallor Neurologic: No Headache, Dizziness, Numbness, Weakness, or Tingling Psychiatric: No Hallucinations. No SI or HI *Physical Exam - Vital Signs Last Vital Signs Temp Pulse Resp BP Pulse Ox 97.5 F L 75 18 137/85 100 03/31/18 22:07 03/31/18 22:07 03/31/18 22:07 03/31/18 22:07 03/31/18 22:07 - Physical Exam Comments: 03/31/18 23:42 General Appearance: Nourished. No Apparent Distress HEENT: No Pharyngeal Erythema, Tonsillar Exudate, Tonsillar Erythema Neck: No Cervical Lymphadenopathy Respiratory/Chest: Lungs Clear, Normal Breath Sounds. No Crackles, Rales, Rhonchi, Wheezing Cardiovascular: Regular Rhythm, Regular Rate. No Murmur, Gallops, Rubs Gastrointestinal/Abdominal: Normal Bowel Sounds, Soft. No Guarding, Rebound, Tenderness Musculoskeletal: No CVA Tenderness Extremity: Normal Capillary Refill Integumentary: Normal Color, Dry, Warm Neurologic: Fully Oriented, Alert, Normal Mood/Affect, Normal Response, Moderate Sedation - Procedure Monitoring Vital Signs: Procedure Monitoring Vital Signs Temperature 97.5 F L 03/31/18 22:07 Pulse Rate 75 03/31/18 22:07 Respiratory Rate 18 03/31/18 22:07 Blood Pressure 137/85 03/31/18 22:07 O2 Sat by Pulse Oximetry (%) 100 03/31/18 22:07 Medical Decision Making - Medical Decision Making 03/31/18 23:42 The patient is a 48 year old female with a history of HLD, DM, Hypothyroid, UTIs who presents for evaluation of pain on urination. Given the patient's history and physical exam, it is likely her symptoms are due to a UTI. She appears clinically well on exam with a non-tender abdomen. We will obtain a UA , urine preg, urine culture to evaluate further. We will treat with zofran, tylenol, pyridium and continue to monitor and reassess while here in the ED. 04/01/18 01:17 UA demonstrates positive leuk esteras with elevated wbc consistent with a urinary tract infection. The patient appears well one exam and we are comfortable discharging the patient home with urology follow up. We discussed the results, plan, and return precautions with the patient and her family who voiced understanding and is agreeable with the plan. *DC/Admit/Observation/Transfer Diagnosis at time of Disposition: UTI (urinary tract infection) Qualifiers: Urinary tract infection type: site unspecified Hematuria presence: without hematuria Qualified Code(s): N39.0 - Urinary tract infection, site not specified - Discharge Dispostion Disposition: HOME Condition at time of disposition: Stable Decision to Admit order: No - Prescriptions Prescriptions: Nitrofurantoin Monohyd/M-Cryst [Macrobid -] 100 mg PO BID #14 capsule Ondansetron HCl [Zofran] 4 mg PO TID PRN #12 tablet PRN Reason: Nausea And/Or Vomiting Phenazopyridine HCl [Pyridium] 200 mg PO TID #6 tablet - Referrals Referrals: Derian Nesbitt MD [Staff Physician] - - Patient Instructions Printed Discharge Instructions: DI for Urinary Tract Infection (UTI) Additional Instructions: Please return to the ER if you experience concerning or worsening symptoms including worsening difficulty breathing, weakness, or chest pain, fevers, abdominal pain, vomiting. Your lab results show that you have a urinary tract infection here in the ER. We have sent a prescription to your pharmacy for antibiotics and anti-nausea medication that you should take as directed. You may take pyridium, tylenol, and ibuprofen as needed for pain management. Please call to schedule a follow up appointment with your primary care provider and our urologist Dr. Nesbitt within 2-3 days to discuss your ER visit and further management of your symptoms. - Post Discharge Activity
[2018-03-31] MEDS ORDERED: ONDANSETRON *ODT* 4 MG TABLET SL ONE (23:34)
[2018-03-31] MEDS ORDERED: ACETAMINOPHEN 500 MG TABLET (FP) PO ONE (23:34)
[2018-03-31] MEDS ORDERED: PHENAZOPYRIDINE HCL 100 MG TABLET (FP) PO ONE (23:35)
[2018-03-31] MEDS ORDERED: ACETAMINOPHEN 325 MG TABLET (FP) ONE (23:42)
[2018-03-31] MEDS ORDERED: ONDANSETRON *ODT* 4 MG TABLET ONE (23:43)
[2018-03-31] MEDS ORDERED: PHENAZOPYRIDINE HCL 100 MG TABLET (FP) ONE (23:43)
--- NOTE | 2018-04-01 | PDOC ---
Attending Attestation - HPI HPI: 04/01/18 00:00 The patient is a 48 year old female, with a significant past medical history of diabetes, hypertension, hyperlipidemia, hypothyroidism, UTI, and GERD, who presents to the emergency department for dysuria and lower abdominal pain for several days. The patient also reports associated nausea, but denies vomiting. She states the nausea today prompted her ED visit. She states this feels similar to her prior UTIs. The patient denies chest pain, shortness of breath, headache and dizziness. The patient denies fever, chills, vomit, diarrhea and constipation. The patient denies frequency, urgency and hematuria. Allergies: NKDA Past Surgical History: None reported. Social History: Non-smoker. Denies alcohol or illicit drug use. PCP: Dr. Dom Ulrich - Medical Decision Making 04/01/18 00:00 Documentation prepared by Bailey Mathew, acting as biomedical equipment support specialist for Bakari Elder MD <Bailey Mathew - Last Filed: 04/01/18 00:00> - Resident Resident Name: Kar Head - ED Attending Attestation I have performed the following: I have examined & evaluated the patient, The case was reviewed & discussed with the resident, I agree w/resident's findings & plan, Exceptions are as noted - Physicial Exam PE: 04/01/18 01:08 Agree with exam documented by resident - Medical Decision Making 03/31/18 23:58 UCx from prior visit tx UTI shows sensitivity to macrobid with good clinical effect per patient Hx, PE consistent with cystitis, no cvat, no vs derangements f/u ua, send ucx dispo per clinical course 04/01/18 01:08 UA pos for infection Pt with cystitis in context of ESBL in last UCx UCx shows lab sensitivity to macrobid as well as patient's report of clinical resolution after a course of macrobid indicates likely in vivo sensitivity to macrobid DC home with course of macrobid strict return instructions <Bakari Elder - Last Filed: 04/01/18 01:11>
[2018-04-01 00:16] LABS: URINE APPEARANCE SLCLOUDY; URINE BILIRUBIN NEGATIVE (<2.0 mg/dL); URINE COLOR STRAW; URINE GLUCOSE (UA) 3+ (NEGATIVE); URINE KETONE NEGATIVE (NEGATIVE); URINE LEUK ESTERASE 3+ (NEGATIVE); URINE NITRITE NEGATIVE (NEGATIVE); URINE PROTEIN 1+ (NEGATIVE); URINE UROBILINOGEN NEGATIVE mg/dL (0.2-1.0)
[2018-04-01 00:17] LABS: HCG,QUALITATIVE URINE Negative
[2018-04-01 00:52] LABS: EPI CELLS RARE /HPF (FEW); URINE HYALINE CAST 1 /lpf
[2018-04-01] MEDS ORDERED: IBUPROFEN 600 MG TABLET (FP) PO ONE ×2 (01:12→01:38)
[2018-04-01] MEDS ORDERED: NITROFURANTOIN MACROCRYSTAL 50 MG CAPSULE (FP) PO SCH (01:15)
[2018-04-01] MEDS ORDERED: NITROFURANTOIN MACROCRYSTAL 50 MG CAPSULE (FP) ONE (01:38)
[2018-04-01 01:53] VITALS: BP 121/82; PULSE 76
== END 2018-04-01 01:54 | disposition home or self-care (01) ==
LOC: JER 22:03
DX: N39.0 Urinary tract infection, site not specified (principal); Z79.4 Long term (current) use of insulin; E03.9 Hypothyroidism, unspecified; E78.00 Pure hypercholesterolemia, unspecified
CPT/HCPCS: 81003; 81015; 84703; 87086; 87186; 99281-25; Q0162

== ENCOUNTER 2018-05-28 13:48 | Emergency (ER) | payer OTHER ==
--- NOTE | 2018-05-28 13:59 | PDOC ---
Rapid Medical Evaluation Time Seen by Provider: 05/28/18 13:55 Medical Evaluation: Allergies Allergy/AdvReac Type Severity Reaction Status Date / Time No Known Allergies Allergy Verified 03/31/18 22:27 05/28/18 13:57 I have performed a brief in-person evaluation of this patient. Chief complaint: Na 127 on outside labs - not symptomatic but has needed hospitalization for same in past. Pertinent physical exam findings: Alert, oriented, interactive, no focal neurologic deficits. I have ordered the following: CBC, CMP, BNP, TSH, Mg, UA Patient will proceed to the ED for further evaluation. Discharge Disposition - Diagnosis Hyponatremia - Referrals - Patient Instructions - Post Discharge Activity
[2018-05-28 14:07] VITALS: TEMP 98; BMI 21.5
--- NOTE | 2018-05-28 14:30 | PDOC ---
History of Present Illness - General Chief Complaint: Revisit, Lab Variance Stated Complaint: SENT BY PCP // ABN LABS Time Seen by Provider: 05/28/18 13:55 History Source: Patient Exam Limitations: No Limitations - History of Present Illness Initial Comments: 05/28/18 15:24 HPI: This 48-year-old female presents here to the emergency room with a request to have repeat labs drawn. Apparently she's had a numerous amount of hyponatremic events. She does go to her primary physician at [facility]. She had her labs drawn 2 days ago and they repeated with a sodium of 127. Her primary Dr. Garay was concerned and sent her to the emergency room for reevaluation and repeat labs. She is asymptomatic except for some feeling of a mild headache. No nausea, vomiting, coughing, change in mental status, change in vision status. She is urinating in her urine does appear to be pale. She does have a low sodium in her urine as well. According to her daughter who is present with her she does have a appointment with a chaser apprentice but not until June 25. Chief Compliant: Hyponatremia PMH: Hyponatremic events, FH: Pt has not recently traveled outside the country in the last 30 days. Pt has not been in contact with people who have traveled out of the country, in contact with people who have been ill with fever, n, v, d. SH: smoking use: NONE illicit drug use: NONE alcohol use: NONE employment/educational status: sexual history: PSH: Denies Home med use noted on JUN Allergies: NKA Immunizations: PCP: [facility] clinic, Dr. Skinner Past History - Past Medical History Allergies/Adverse Reactions: Allergies Allergy/AdvReac Type Severity Reaction Status Date / Time No Known Allergies Allergy Verified 03/31/18 22:27 Home Medications: Ambulatory Orders Enalapril Maleate 2.5 mg PO DAILY 08/04/16 Levothyroxine [Synthroid -] 50 mcg PO DAILY 08/04/16 Nateglinide [Starlix (Nf)] 60 mg PO AC 08/04/16 Pantoprazole Sodium 40 mg PO DAILY 08/04/16 Sitagliptin Phosphate [Januvia] 100 mg PO DAILY 08/04/16 metFORMIN HCL [Metformin HCl] 500 mg PO BID 08/04/16 Diclofenac Sodium [Voltaren] 100 gm TP ASDIR 10/02/17 Simvastatin [Zocor] 10 mg PO HS 10/02/17 Calcium Carbonate/Vitamin D3 [Calcium 500 + Vit D Caplet] 1 each PO DAILY Ferrous Sulfate [Iron] 325 mg PO DAILY 05/28/18 Insulin Glargine,Hum.rec.anlog [Basaglar Shaileshikpen U-100] 10 unit SQ HS 05/28/18 Magnesium Oxide [Magox 400] 400 mg PO BID 05/28/18 Vitamin B Complex 1 each PO DAILY 05/28/18 COPD: No Diabetes: Yes Hypercholesterolemia: Yes Thyroid Disease: Yes (HYPO) - Immunization History TDAP Vaccination: No Immunization Up to Date: Yes - Suicide/Smoking/Psychosocial Hx Smoking History: Never smoked Have you smoked in the past 12 months: No Hx Alcohol Use: No Drug/Substance Use Hx: No Substance Use Type: None Review of Systems - Review of Systems Able to Perform ROS?: Yes Comments:: 05/28/18 15:55 General statement: Low sodium Hematology: neg history of bleeding/blood thinners Skin: Neg for lesions, rash, bruising. HEENT: Neg symptoms Respiratory: Neg SOB or difficulty in breathing Cardiac: Neg chest pain GI: Neg pain, n/v : Neg problems on voiding MS: Neg for joint pain/stiffness, no edema Neuro: Neg for LOC, weakness, denies headache Endocrine: Neg for excess thirst/hunger, cold/heat intolerance, excess sweating Allergies: Neg for allergies *Physical Exam - Vital Signs Last Vital Signs Temp Pulse Resp BP Pulse Ox 98 F 93 H 18 127/83 99 05/28/18 13:58 05/28/18 13:58 05/28/18 13:58 05/28/18 13:58 05/28/18 13:58 - Physical Exam Comments: 05/28/18 15:55 General Appearance: This well appearing 48-year-old female V/S: hemodynamically stable, afebrile Skin: WNL of pt's skin color, no signs of pallor, mottling, cyanosis Head:symmetrical Eyes: EOM's intact, PERRLA Ears: denies pain Nose: patent Throat: lips, teeth, gums, tongue, buccal mucos pink and moist Lungs: Chest symmetry equal. Cap refill <3 seconds. Lung sounds clear Cardiac: PMI at R 4MCL space, pos S1 and S2, regular rate. Abdomen: Soft, round, nontender : Not observed Muscularskeletal: Gait steady, ambulated in to ER, no edema +PMS Neuro: AAOx3, cognitively intact, speech clear and appropriate. Moderate Sedation - Procedure Monitoring Vital Signs: Procedure Monitoring Vital Signs Temperature 98 F 05/28/18 13:58 Pulse Rate 93 H 05/28/18 13:58 Respiratory Rate 18 05/28/18 13:58 Blood Pressure 127/83 05/28/18 13:58 O2 Sat by Pulse Oximetry (%) 99 05/28/18 13:58 ED Treatment Course - LABORATORY CBC & Chemistry Diagram: 05/28/18 14:47 05/28/18 14:47 Medical Decision Making - Medical Decision Making 05/28/18 15:55 Patient initially was seen and examined by her primary physician yesterday when labs were obtained and she found to be hyponatremic. They called her up at home and told her reports to the emergency room to have her labs repeated. Her sodium now is 127 which is what it stated at the physician's office as well. She is asymptomatic and has been noted to have low sodiums. She has not been admitted here or seen here since 2017 where she did have a hyponatremic event of 123 and was discharged with a sodium that is in the 130s. Patient is going to need to be admitted for hyponatremic episodes. Her urine also shows a urine sodium that is 27 and considered low. She is having elevated glucoses as well. She will need to follow with her chaser apprentice as she did have it scheduled for June 25. 05/28/18 16:21 Spoke to hospitalist and will be admitting for hyponatremia and possible SIADH 05/28/18 16:49 Discussion with hospitalist, insulin was to be given. Fingerstick turned out to be 2:15 so no insulin was held. IV fluid was going to be started and now 2 boluses of normal saline are to be given. Will recheck labs after this. She will remain in the ER until these are completed. Discussed with Dr. Brock 05/28/18 18:28 Patient currently is still receiving her second IV bag of fluids, labs will be obtained after these are complete. She is also repleted her magnesium. 05/28/18 18:29 I am signing this patient out to my colleague: светлана SINGH In brief, this patient is being seen in the ED for a chief complaint of: hyponatremia I have completed the initial assessment interview note and have ordered:IVF, fingersticks, repletion and labs to be redrawn Pending results Please call the PCP:2 Dr. Susanne hernandez Plan for disposition is as follows: Depending on the patient's labs are upon completion of this treatment she may be discharged home or at least admission here overnight with observation. I spoke with Dr. Osorio Ardon earlier regarding this patient. *DC/Admit/Observation/Transfer Diagnosis at time of Disposition: Hyponatremia - Discharge Dispostion Condition at time of disposition: Guarded Decision to Admit order: No - Referrals Referrals: Sagrario Skinner, MS [Primary Care Provider] - - Patient Instructions - Post Discharge Activity
[2018-05-28 15:04] LABS: BASO % 0.6 % (0-2.0); EOS % 0.6 % (0-4.5); HEMOGLOBIN 11.1 GM/dL (10.7-15.3); LYMPH % 23.8 % (8-40); MCH 29.4 pg (25.7-33.7); MCHC 35.8 g/dl (32.0-36.0); MEAN CELL VOLUME 82.1 fl (80-96); MEAN PLT VOLUME 7.5 fl (7.5-11.1); MONO % 5.6 % (3.8-10.2); NEUT % 69.4 % (42.8-82.8); PLATELET COUNT 274 K/MM3 (134-434); RBC 3.77 M/mm3 (3.60-5.2); RDW 13.6 % (11.6-15.6); URINE APPEARANCE CLEAR; URINE BILIRUBIN NEGATIVE (<2.0 mg/dL); URINE COLOR COLORLESS; URINE GLUCOSE (UA) 3+ (NEGATIVE); URINE KETONE NEGATIVE (NEGATIVE); URINE LEUK ESTERASE NEGATIVE (NEGATIVE); URINE NITRITE NEGATIVE (NEGATIVE); URINE PROTEIN NEGATIVE (NEGATIVE); URINE UROBILINOGEN NEGATIVE mg/dL (0.2-1.0); WHITE BLOOD COUNT 5.6 K/mm3 (4.0-10.0)
[2018-05-28 15:41] LABS: ALK PHOS 83 U/L (45-117); ANION GAP 9 MMOL/L (8-16); BILIRUBIN,TOTAL 0.2 mg/dL (0.2-1); BLOOD UREA NITROGEN 9 mg/dL (7-18); CALCIUM 8.8 mg/dL (8.5-10.1); CHLORIDE 95 mmol/L (98-107); CO2 23 mmol/L (21-32); CREATININE 0.8 mg/dL (0.55-1.3); MAGNESIUM 1.5 mg/dL (1.8-2.4); N-TERMINAL BNP 28.1 pg/ml (5-125); POTASSIUM 4.4 mmol/L (3.5-5.1); SGOT/AST 26 U/L (15-37); SGPT/ALT 52 U/L (13-61); SODIUM 128 mmol/L (136-145); TOT PROT 7.2 g/dl (6.4-8.2)
[2018-05-28 15:48] LABS: GLUCOSE,RANDOM 345 mg/dL (74-106)
[2018-05-28] MEDS ORDERED: INSULIN REGULAR HUMAN 100 UNITS/ML *VIAL IVPUSH ONE (16:31)
[2018-05-28] MEDS ORDERED: SODIUM CHLORIDE 1,000 ML IV STA (16:38)
[2018-05-28] MEDS ORDERED: SODIUM CHLORIDE 2,000 ML IV STA (16:47)
[2018-05-28 16:53] LABS: OSMOLALITY,SERUM 279 mosm/kg (278-305)
[2018-05-28] MEDS ORDERED: MAGNESIUM 1GM/D5W - 2 GM/200 ML IVPB IVPB ONE (18:02)
[2018-05-28 18:49] VITALS: BP 121/77; PULSE 87
--- NOTE | 2018-05-28 19:21 | PDOC ---
*Physical Exam - Vital Signs Last Vital Signs Temp Pulse Resp BP Pulse Ox 98 F 87 18 121/77 99 05/28/18 13:58 05/28/18 18:48 05/28/18 18:48 05/28/18 18:48 05/28/18 18:48 ED Treatment Course - LABORATORY CBC & Chemistry Diagram: 05/28/18 14:47 05/28/18 19:00 - ADDITIONAL ORDERS Additional order review: Laboratory Results 05/28/18 05/28/18 05/28/18 16:42 14:47 14:47 Sodium Potassium Chloride Carbon Dioxide Anion Gap BUN Creatinine Creat Clearance w eGFR POC Glucometer 213 Random Glucose Serum Osmolality Calcium Magnesium Total Bilirubin AST ALT Alkaline Phosphatase B-Natriuretic Peptide Total Protein Albumin TSH Urine Color Colorless Urine Appearance Clear Urine pH 6.0 Ur Specific [place] 1.001 L Urine Protein Negative Urine Glucose (UA) 3+ H Urine Ketones Negative Urine Blood Negative Urine Nitrite Negative Urine Bilirubin Negative Urine Urobilinogen Negative Ur Leukocyte Esterase Negative Ur Random Sodium 27 L 05/28/18 14:47 Sodium 128 L Potassium 4.4 Chloride 95 L Carbon Dioxide 23 Anion Gap 9 BUN 9 Creatinine 0.8 Creat Clearance w eGFR > 60 POC Glucometer Random Glucose 345 H* Serum Osmolality 279 Calcium 8.8 Magnesium 1.5 L Total Bilirubin 0.2 AST 26 ALT 52 Alkaline Phosphatase 83 B-Natriuretic Peptide 28.1 Total Protein 7.2 Albumin 4.0 TSH 0.41 Urine Color Urine Appearance Urine pH Ur Specific [place] Urine Protein Urine Glucose (UA) Urine Ketones Urine Blood Urine Nitrite Urine Bilirubin Urine Urobilinogen Ur Leukocyte Esterase Ur Random Sodium 05/28/18 05/28/18 16:42 14:47 RBC 3.77 MCV 82.1 MCHC 35.8 RDW 13.6 MPV 7.5 Neutrophils % 69.4 Lymphocytes % 23.8 D Monocytes % 5.6 Eosinophils % 0.6 Basophils % 0.6 POC Glucometer 213 - Medications Given in the ED: ED Medications Discontinued Medications Generic Name Dose Route Start Last Admin Trade Name Freq PRN Reason Stop Dose Admin Sodium Chloride 2,000 mls @ 1,000 mls/hr 05/28/18 16:47 05/28/18 16:53 Normal Saline - IV 05/28/18 18:46 1,000 mls/hr ASDIR STA Administration Medical Decision Making - Medical Decision Making Pt was signed out to me by day team, who explained the presentation, ED course, any pending results, and needed interventions. Pending results include repeat labs (CMP - Na, glucose, Mg). Pt is currently stable and is lying comfortably. Pt received 2 L IV NS and Mg repletion. If uptrending labs, pt will be able to d /c home. 05/28/18 19:19 Repeat CMP: Na 137, K 4.7, gluc 166, Mg 1.9 (all improved from prior). Pt can be discharged to home with follow-up for further work-up of hyponatremia. Pt advised to follow-up with PCP in 1-2 days. Strict return precautions provided with pt understanding. 05/28/18 19:57 *DC/Admit/Observation/Transfer Diagnosis at time of Disposition: Hyponatremia - Discharge Dispostion Disposition: HOME Condition at time of disposition: Improved Decision to Admit order: No - Referrals Referrals: Sagrario Skinner, MS [Primary Care Provider] - - Patient Instructions Printed Discharge Instructions: DI for Hyponatremia Additional Instructions: You were seen in the ER today for low sodium and repeat blood tests. The results of your labs today all improved after we provided fluids and magnesium. Please follow-up with your primary care doctor within 1-2 days to discuss your visit and make sure your symptoms have improved. Please return to the ER if you have any worsening pain, development of fevers or chills, loss of consciousness , inability to tolerate food or fluids, or any other concerns. - Post Discharge Activity
[2018-05-28 19:47] LABS: ANION GAP 8 MMOL/L (8-16); BLOOD UREA NITROGEN 6 mg/dL (7-18); CALCIUM 8.6 mg/dL (8.5-10.1); CHLORIDE 106 mmol/L (98-107); CO2 23 mmol/L (21-32); CREATININE 0.6 mg/dL (0.55-1.3); GLUCOSE,RANDOM 166 mg/dL (74-106); MAGNESIUM 1.9 mg/dL (1.8-2.4); PHOSPHOROUS 3.5 mg/dL (2.5-4.9); POTASSIUM 4.7 mmol/L (3.5-5.1); SODIUM 137 mmol/L (136-145)
== END 2018-05-28 20:50 | disposition home or self-care (01) ==
LOC: JER 13:48
PROC: 3E0337Z Introduction of Electrolytic and Water Balance Substance into Peripheral Vein, Percutaneous Approach (ICD-10-PCS; principal; 2018-05-28)
PROC: 3E033GC Introduction of Other Therapeutic Substance into Peripheral Vein, Percutaneous Approach (ICD-10-PCS; 2018-05-28)
DX: E87.1 Hypo-osmolality and hyponatremia (principal); E11.9 Type 2 diabetes mellitus without complications; Z79.4 Long term (current) use of insulin; Z79.84 Long term (current) use of oral hypoglycemic drugs; E03.9 Hypothyroidism, unspecified; E78.00 Pure hypercholesterolemia, unspecified
CPT/HCPCS: 36415; 80048; 80053; 81003; 82962; 83735; 83880; 83930; 84100; 84300; 84443; 84479; 85025; 87086; 96361; 96365; 99283-25; J7030

== ENCOUNTER 2018-07-21 08:40 | Emergency (ER) | payer OTHER ==
[2018-07-21 08:53] VITALS: BP 129/81; PULSE 106; TEMP 98.6; BMI 21.4
--- NOTE | 2018-07-21 09:50 | PDOC ---
History of Present Illness - General Chief Complaint: Urinary Problem Stated Complaint: UTI Time Seen by Provider: 07/21/18 08:54 History Source: Patient Exam Limitations: Clinical Condition - History of Present Illness Initial Comments: 07/21/18 10:23 Patient with history of recurrent UTI present with complaint of 2 day history of urinary frequency, dysuria, burning with urination and urinary urgency. Patient also reported nausea but denies vomiting. Denies fever, chills or back pain. Denies any other symptoms Timing/Duration: other (2 days) Past History - Past Medical History Allergies/Adverse Reactions: Allergies Allergy/AdvReac Type Severity Reaction Status Date / Time No Known Allergies Allergy Verified 07/21/18 09:09 Home Medications: Ambulatory Orders Enalapril Maleate 2.5 mg PO DAILY 08/04/16 Levothyroxine [Synthroid -] 50 mcg PO DAILY 08/04/16 Nateglinide [Starlix (Nf)] 60 mg PO AC 08/04/16 Pantoprazole Sodium 40 mg PO DAILY 08/04/16 Sitagliptin Phosphate [Januvia] 100 mg PO DAILY 08/04/16 metFORMIN HCL [Metformin HCl] 500 mg PO BID 08/04/16 Diclofenac Sodium [Voltaren] 100 gm TP ASDIR 10/02/17 Simvastatin [Zocor] 10 mg PO HS 10/02/17 Calcium Carbonate/Vitamin D3 [Calcium 500 + Vit D Caplet] 1 each PO DAILY Ferrous Sulfate [Iron] 325 mg PO DAILY 05/28/18 Insulin Glargine,Hum.rec.anlog [Basaglar Kwikpen U-100] 10 unit SQ HS 05/28/18 Magnesium Oxide [Magox 400] 400 mg PO BID 05/28/18 Vitamin B Complex 1 each PO DAILY 05/28/18 Nitrofurantoin Monohyd/M-Cryst [Macrobid -] 100 mg PO BID #14 capsule 07/21/18 Phenazopyridine HCl [Pyridium] 100 mg PO TID 2 Days #6 tablet 07/21/18 COPD: No Diabetes: Yes Hypercholesterolemia: Yes Thyroid Disease: Yes (HYPO) - Immunization History TDAP Vaccination: No Immunization Up to Date: Yes - Suicide/Smoking/Psychosocial Hx Smoking History: Never smoked Have you smoked in the past 12 months: No Information on smoking cessation initiated: No Hx Alcohol Use: No Drug/Substance Use Hx: No Substance Use Type: None Review of Systems - Review of Systems Able to Perform ROS?: Yes Is the patient limited Romansh proficient: No Constitutional: No: Chills, Fever HEENTM: No: Symptoms Reported Respiratory: No: Symptoms reported Cardiac (ROS): No: Symptoms Reported ABD/GI: Yes: See HPI, Nausea. No: Constipated, Diarrhea, Vomiting, Abdominal cramping : Yes: See HPI, Burning, Dysuria, Frequency, Urgency. No: Discharge, Flank Pain, Incontinence Musculoskeletal: No: Back Pain Neurological: No: Dizziness All Other Systems: Reviewed and Negative *Physical Exam - Vital Signs Last Vital Signs Temp Pulse Resp BP Pulse Ox 98.6 F 106 H 16 129/81 100 07/21/18 08:46 07/21/18 08:46 07/21/18 08:46 07/21/18 08:46 07/21/18 08:46 - Physical Exam General Appearance: Yes: Nourished, Appropriately Dressed. No: Apparent Distress HEENT: positive: Normal ENT Inspection Neck: positive: Supple Respiratory/Chest: positive: Normal Breath Sounds. negative: Respiratory Distress, Accessory Muscle Use Cardiovascular: positive: Regular Rhythm, Regular Rate Gastrointestinal/Abdominal: positive: Flat, Soft. negative: Tender Musculoskeletal: positive: Normal Inspection. negative: CVA Tenderness Extremity: positive: Normal Inspection Integumentary: positive: Normal Color Neurologic: positive: Fully Oriented, Alert Medical Decision Making - Medical Decision Making 07/21/18 10:26 Patient with history of recurrent UTI present with complaint of 2 day history of urinary frequency, dysuria, burning with urination and urinary urgency. Patient also reported nausea but denies vomiting. Denies fever, chills or back pain. Denies any other symptoms. UA shows positive leukocytosis with nitrites and WBCs. Patient will be discharged home on Macrobid antibiotics given history of sensitivity and Pyridium with PCP follow-up. *DC/Admit/Observation/Transfer Diagnosis at time of Disposition: UTI (urinary tract infection) Qualifiers: Urinary tract infection type: acute cystitis Hematuria presence: without hematuria Qualified Code(s): N30.00 - Acute cystitis without hematuria - Discharge Dispostion Disposition: HOME Condition at time of disposition: Stable Decision to Admit order: No - Prescriptions Prescriptions: Nitrofurantoin Monohyd/M-Cryst [Macrobid -] 100 mg PO BID #14 capsule Phenazopyridine HCl [Pyridium] 100 mg PO TID 2 Days #6 tablet - Referrals Referrals: Claudia Skinner MD [Primary Care Provider] - - Patient Instructions Printed Discharge Instructions: DI for Urinary Tract Infection (UTI) Additional Instructions: Take medications as prescribed. Increase fluid intake. Follow-up with PCP - Post Discharge Activity
[2018-07-21 10:17] LABS: PH,URINE 5.5 (5.0-8.0); URINE APPEARANCE Clear; URINE BILIRUBIN Negative (NEGATIVE); URINE COLOR Yellow; URINE GLUCOSE (UA) 2+ (NEGATIVE); URINE KETONE Negative (NEGATIVE); URINE NITRITE Negative (NEGATIVE); URINE PROTEIN Negative (NEGATIVE); URINE UROBILINOGEN 0.2 mg/dL (0.2-1.0)
[2018-07-21 10:31] LABS: EPI CELLS 2+ /HPF (0-5/HPF); URINE BACTERIA 3+ /hpf (NEGATIVE); URINE LEUK ESTERASE 3+ (NEGATIVE); URINE RBC 0-3 /hpf (0-4); URINE WBC 40-50 /hpf (0-5)
== END 2018-07-21 10:32 | disposition home or self-care (01) ==
LOC: JERFT 08:40
DX: N30.00 Acute cystitis without hematuria (principal); E03.9 Hypothyroidism, unspecified; E78.00 Pure hypercholesterolemia, unspecified; E11.9 Type 2 diabetes mellitus without complications
CPT/HCPCS: 81003; 87086; 87186; 99281-25

== ENCOUNTER 2018-07-23 23:42 | Inpatient (IN) | payer OTHER ==
--- NOTE | 2018-07-24 00:42 | PDOC ---
History of Present Illness - General Stated Complaint: HEADACHE,UTI Time Seen by Provider: 07/24/18 00:41 - History of Present Illness Initial Comments: 48 year old female with PMH of HTN, IDDM, GERD, HLD, hypothyroidism, and hyponatremia presenting with left sided headache for the past day. Patient and sons at bedside state that she usually gets headaches when she is hyponatremic and suspect that she may be today. She is taking her salt tabs as prescribed. She did try some tylenol at home a few ays ago. of note she was diagnosed with a UTI a few days prior and is on nitrofurantioin. Her urinary symptoms have resolved. Also fo note, she did have some nausea and vomiting yesterday. Denies fevers, chills, chest pain, SOB, or other symptoms. 07/24/18 03:44 Past History - Past Medical History Allergies/Adverse Reactions: Allergies Allergy/AdvReac Type Severity Reaction Status Date / Time No Known Allergies Allergy Verified 07/24/18 00:42 Home Medications: Ambulatory Orders Enalapril Maleate 2.5 mg PO DAILY 08/04/16 Levothyroxine [Synthroid -] 50 mcg PO DAILY 08/04/16 Nateglinide [Starlix (Nf)] 60 mg PO AC 08/04/16 Pantoprazole Sodium 40 mg PO DAILY 08/04/16 Sitagliptin Phosphate [Januvia] 100 mg PO DAILY 08/04/16 metFORMIN HCL [Metformin HCl] 500 mg PO BID 08/04/16 Diclofenac Sodium [Voltaren] 100 gm TP ASDIR 10/02/17 Simvastatin [Zocor] 10 mg PO HS 10/02/17 Calcium Carbonate/Vitamin D3 [Calcium 500 + Vit D Caplet] 1 each PO DAILY Ferrous Sulfate [Iron] 325 mg PO DAILY 05/28/18 Insulin Glargine,Hum.rec.anlog [Basaglar Kwikpen U-100] 10 unit SQ HS 05/28/18 Magnesium Oxide [Magox 400] 400 mg PO BID 05/28/18 Vitamin B Complex 1 each PO DAILY 05/28/18 Nitrofurantoin Monohyd/M-Cryst [Macrobid -] 100 mg PO BID #14 capsule 07/21/18 Phenazopyridine HCl [Pyridium] 100 mg PO TID 2 Days #6 tablet 07/21/18 COPD: No Diabetes: Yes Hypercholesterolemia: Yes Thyroid Disease: Yes (HYPO) - Immunization History TDAP Vaccination: No Immunization Up to Date: Yes - Suicide/Smoking/Psychosocial Hx Smoking History: Never smoked Have you smoked in the past 12 months: No Hx Alcohol Use: No Drug/Substance Use Hx: No Substance Use Type: None Review of Systems - Review of Systems Constitutional: No: Chills, Diaphoresis, Fever, Loss of Appetite HEENTM: No: Blurred Vision, Tearing Respiratory: No: Cough, Orthopnea, Shortness of Breath Cardiac (ROS): No: Chest Pain, Edema, Irregular Heart Rate ABD/GI: No: Diarrhea, Nausea, Vomiting : No: Dysuria, Discharge, Frequency Musculoskeletal: No: Back Pain, Joint Pain, Joint Swelling Integumentary: No: Bruising, Lesions, Lumps Neurological: Yes: Headache. No: Numbness, Paresthesia Psychiatric: Yes: Sleep Pattern Change. No: Anxiety, Depression Hematologic/Lymphatic: No: Anemia, Blood Clots, Easy Bleeding *Physical Exam - Physical Exam General Appearance: Yes: Nourished, Appropriately Dressed. No: Apparent Distress HEENT: positive: EOMI, MITCH, Normal ENT Inspection, Normal Voice Neck: positive: Trachea midline, Normal Thyroid, Supple. negative: Tender, Rigid Respiratory/Chest: positive: Lungs Clear, Normal Breath Sounds. negative: Chest Tender, Respiratory Distress, Accessory Muscle Use Cardiovascular: positive: Regular Rhythm, Regular Rate Gastrointestinal/Abdominal: positive: Normal Bowel Sounds, Flat, Soft. negative : Tender Lymphatic: negative: Adenopathy Musculoskeletal: positive: Normal Inspection. negative: Decreased Range of Motion Extremity: positive: Normal Capillary Refill, Normal Inspection, Normal Range of Motion. negative: Tender Integumentary: positive: Normal Color, Dry, Warm Neurologic: positive: Fully Oriented, Alert, Normal Mood/Affect, Normal Response , Motor Strength 5/5 ED Treatment Course - LABORATORY CBC & Chemistry Diagram: 07/24/18 01:10 07/24/18 01:10 Medical Decision Making - Medical Decision Making 48 year old female with PMH of headaches, hyponatremia (on salt tabs), HTN, and recent UTI (on macrobid) presenting with headache. Labs here revealed her to be severely hyponatremic to 123. Given 2L NS, Reglan, and Tylenol with midl relief ofher headache. However, she will need more IV NS for her hypnotremia ( 342 meq deficit). Admitted to medicine with sign out to Dr. Gomes. 07/24/18 03:54 *DC/Admit/Observation/Transfer Diagnosis at time of Disposition: Hyponatremia - Discharge Dispostion Condition at time of disposition: Stable Decision to Admit order: Yes - Referrals - Patient Instructions - Post Discharge Activity
[2018-07-24 00:44] VITALS: BMI 20.7
[2018-07-24] MEDS ORDERED: ACETAMINOPHEN 1000 MG/100 ML VIAL (NON FORMULARY) IVPB ONE (00:55)
[2018-07-24] MEDS ORDERED: ACETAMINOPHEN INJECTION 100 ML IVPB ONE (01:01)
[2018-07-24] MEDS ORDERED: METOCLOPRAMIDE HCL 10 MG TABLET (FP) PO ONE ×2 (01:02→01:16)
[2018-07-24 01:24] LABS: BASO % 0.5 % (0-2.0); EOS % 2.2 % (0-4.5); HEMATOCRIT 34.6 % (32.4-45.2); HEMOGLOBIN 11.9 GM/dL (10.7-15.3); LYMPH % 27.8 % (8-40); MCH 28.4 pg (25.7-33.7); MCHC 34.5 g/dl (32.0-36.0); MEAN CELL VOLUME 82.5 fl (80-96); MEAN PLT VOLUME 7.4 fl (7.5-11.1); MONO % 9.9 % (3.8-10.2); NEUT % 59.6 % (42.8-82.8); PLATELET COUNT 284 K/MM3 (134-434); RDW 13.7 % (11.6-15.6); WHITE BLOOD COUNT 6.4 K/mm3 (4.0-10.0)
--- NOTE | 2018-07-24 01:44 | PDOC ---
Attending Attestation - HPI HPI: The patient is a 48 year old female, with a significant PMH of HTN, IDDM, GERD , HLD, hypothyroidism, and hyponatremia, who presents to the emergency department today complaining of a left-sided headache for one day. Patient typically gets headaches when she is hyponatremic, and her son suspects that is the causal factor today for her headache. Patient admits taking her salt tabs today. She does endorses nausea and vomiting yesterday, but is unsure of the causal factor. She notes taking Tylenol without any relief. Patient notes that she was diagnosed with a UTI recently, for which she is currently on nitrofurantoin but her symptoms are resolved at this time. The patient denies chest pain, shortness of breath, and dizziness. Denies fever, chills, diarrhea and constipation. Denies dysuria, frequency, urgency and hematuria. Allergies: NKA Past surgical history: Social history: No reported PCP: Dr. Claudia Skinner 07/24/18 04:22 - Physicial Exam PE: GENERAL: Awake, alert, and fully oriented, in no acute distress HEAD: No signs of trauma EYES: PERRLA, EOMI, sclera anicteric, conjunctiva clear ENT: Auricles normal inspection, hearing grossly normal, nares patent, oropharynx clear without exudates. Moist mucosa NECK: Normal ROM, supple, no lymphadenopathy, JVD, or masses LUNGS: Breath sounds equal, clear to auscultation bilaterally. No wheezes, and no crackles HEART: Regular rate and rhythm, normal S1 and S2, no murmurs, rubs or gallops ABDOMEN: Soft, nontender, normoactive bowel sounds. No guarding, no rebound. No masses EXTREMITIES: Normal range of motion, no edema. No clubbing or cyanosis. No cords, erythema, or tenderness NEUROLOGICAL: Cranial nerves II through XII grossly intact. Normal speech, normal gait SKIN: Warm, Dry, normal turgor, no rashes or lesions noted. 07/24/18 04:23 - Medical Decision Making Documentation prepared by DENZEL Burt, acting as bacteriologist medical for Kelli Solis MD. 07/24/18 04:23 <Anny Thurston - Last Filed: 07/24/18 04:22> - Resident Resident Name: Mir Meeks - ED Attending Attestation I have performed the following: I have examined & evaluated the patient, The case was reviewed & discussed with the resident, I agree w/resident's findings & plan - Medical Decision Making 07/24/18 02:38 Pt has hyponatremia, as expected, because she tells us that every time she has a ALVARADO she is found to be hyponatremic. 07/24/18 02:57 Pt states that she had 3 episodes of hypoNa this year. She went to [facility] twice in Apr of this year and a month ago she was here for hyponatremia. Pt has had frequent UTIs x 6 months. 07/24/18 05:17 Patient Name: SUHAS OLIVA THIS IS A PRELIMINARY REPORT FROM [facility] DATE OF SERVICE: 2018-07-24 02:12:05 IMAGES: 130 EXAM: HEAD CT WITHOUT CONTRAST HISTORY: Headache COMPARISON: None. FINDINGS: The ventricular system is midline and nondilated. Clinical atrophy is mildly advanced for the patient's age. There is no bleed, mass, extra-axial fluid collection or mass effect. No skull fracture or skull lesion is identified. Left mastoid effusion is consistent with mastoiditis. The visualized paranasal sinuses and right mastoid air cells are clear. IMPRESSION: Left mastoiditis. No acute intracranial pathology. 07/24/18 06:02 Pt will be treated for her mastoiditis, as her ALVARADO has been bethering her for a long time now. Pt will be admitted for her hyponatremia. <Kelli Solis - Last Filed: 07/24/18 06:03>
[2018-07-24 01:54] LABS: ALK PHOS 92 U/L (45-117); ANION GAP 8 MMOL/L (8-16); BILIRUBIN,TOTAL 0.5 mg/dL (0.2-1); BLOOD UREA NITROGEN 9 mg/dL (7-18); CALCIUM 9.3 mg/dL (8.5-10.1); CHLORIDE 90 mmol/L (98-107); CO2 25 mmol/L (21-32); CREATININE 0.6 mg/dL (0.55-1.3); GLUCOSE,RANDOM 231 mg/dL (74-106); POTASSIUM 4.5 mmol/L (3.5-5.1); SGOT/AST 36 U/L (15-37); SGPT/ALT 67 U/L (13-61); SODIUM 124 mmol/L (136-145)
[2018-07-24] MEDS ORDERED: SODIUM CHLORIDE 0.9% 500 ML INFUS.BAG IV ONE (02:17)
--- NOTE | 2018-07-24 03:30 | HP ---
CHIEF COMPLAINT: PCP: Serg HISTORY OF PRESENT ILLNESS: This is a 48 yo F, with PMH of recurrent UTI, recurrent h/a due to hyponatremia (previous head injury), DM, HTN, HLD, hypothyroidism, and GERD, who presents due to h/a. Found to have NA 124, which is consistent with prior episodes, at which time she was treated with saline in ED and discharged home. This time she again received saline with resolution of h/a. UA is consistent with UTI thought patient is asymptomatic and chart review reveals that last micro was + ESBL, treated outpatient with macrobid which would not cover the bacteria. Currently denies dysuria, flank pain, h/a, change in vision, cp, sob, cough, abd pain, n/v/d/c. ER course was notable for: (1)labs (2)CT head (3)1L NS, reglan, iv tylenol Recent Travel: denies PAST MEDICAL HISTORY: as above PAST SURGICAL HISTORY: as above Social History: Smoking: denies Alcohol:denies Drugs: denies Family History: noncontributory Allergies No Known Allergies Allergy (Verified 07/24/18 00:42) HOME MEDICATIONS: Home Medications Medication Instructions Recorded Enalapril Maleate 2.5 mg PO DAILY 08/04/16 Levothyroxine [Synthroid -] 50 mcg PO DAILY 08/04/16 Nateglinide [Starlix (Nf)] 60 mg PO AC 08/04/16 Pantoprazole Sodium 40 mg PO DAILY 08/04/16 Sitagliptin Phosphate [Januvia] 100 mg PO DAILY 08/04/16 metFORMIN HCL [Metformin HCl] 500 mg PO BID 08/04/16 Diclofenac Sodium [Voltaren] 100 gm TP ASDIR 10/02/17 Simvastatin [Zocor] 10 mg PO HS 10/02/17 Calcium Carbonate/Vitamin D3 1 each PO DAILY 05/28/18 [Calcium 500 + Vit D Caplet] Ferrous Sulfate [Iron] 325 mg PO DAILY 05/28/18 Insulin Glargine,Hum.rec.anlog 10 unit SQ HS 05/28/18 [Basaglar Kwikpen U-100] Magnesium Oxide [Magox 400] 400 mg PO BID 05/28/18 Vitamin B Complex 1 each PO DAILY 05/28/18 Nitrofurantoin Monohyd/M-Cryst 100 mg PO BID #14 capsule 07/21/18 [Macrobid -] Phenazopyridine HCl [Pyridium] 100 mg PO TID 2 Days #6 tablet 07/21/18 REVIEW OF SYSTEMS CONSTITUTIONAL: Absent: fever, chills HEENT: Absent: rhinorrhea, nasal congestion, throat pain, visual changes CARDIOVASCULAR: Absent: chest pain, syncope, palpitations, irregular heart rate, lightheadedness , peripheral edema RESPIRATORY: Absent: cough, shortness of breath, dyspnea with exertion GASTROINTESTINAL: Absent: abdominal pain, abdominal distension, nausea, vomiting, diarrhea, constipation, melena, hematochezia GENITOURINARY: Absent: dysuria, flank pain MUSCULOSKELETAL: Absent: myalgia, arthralgia SKIN: Absent: rash, itching, pallor HEMATOLOGIC/IMMUNOLOGIC: Absent: easy bleeding, easy bruising ENDOCRINE: Absent: unexplained weight gain, unexplained weight loss NEUROLOGIC: Absent: focal weakness or paresthesias, dizziness, unsteady gait PSYCHIATRIC: Absent: anxiety, depression PHYSICAL EXAMINATION Vital Signs - 24 hr 07/24/18 00:43 Temperature 98.2 F Pulse Rate 86 Respiratory 20 Rate Blood Pressure 138/84 O2 Sat by Pulse 100 Oximetry (%) GENERAL: Awake, alert, and fully oriented, in no acute distress. HEAD: Normal with no signs of trauma. EYES: Pupils equal, round and reactive to light, extraocular movements intact, sclera anicteric, conjunctiva clear EARS, NOSE, THROAT: Moist mucous membranes. NECK: supple LUNGS: Breath sounds equal, clear to auscultation bilaterally. HEART: Regular rate and rhythm, normal S1 and S2 ABDOMEN: Soft, nontender, not distended, normoactive bowel sounds, no guarding, no rebound, no masses. MUSCULOSKELETAL: No CVA tenderness. UPPER EXTREMITIES: 2+ pulses, warm, well-perfused. LOWER EXTREMITIES: No calf tenderness. No peripheral edema. NEUROLOGICAL: Cranial nerves II-XII grossly intact. Normal speech. PSYCHIATRIC: Appropriate mood and affect. SKIN: Warm, dry Laboratory Results - last 24 hr 07/24/18 07/24/18 01:10 01:10 WBC 6.4 RBC 4.20 Hgb 11.9 Hct 34.6 MCV 82.5 MCH 28.4 MCHC 34.5 RDW 13.7 Plt Count 284 MPV 7.4 L Absolute Neuts (auto) 3.8 Neutrophils % 59.6 Lymphocytes % 27.8 Monocytes % 9.9 Eosinophils % 2.2 D Basophils % 0.5 Nucleated RBC % 0 Sodium 124 L Potassium 4.5 Chloride 90 L Carbon Dioxide 25 Anion Gap 8 BUN 9 Creatinine 0.6 Creat Clearance w eGFR 106.70 Random Glucose 231 H Calcium 9.3 Total Bilirubin 0.5 AST 36 ALT 67 H Alkaline Phosphatase 92 Total Protein 8.0 Albumin 4.0 ASSESSMENT/PLAN: This is a 48 yo F, with PMH of recurrent UTI, recurrent h/a due to hyponatremia (previous head injury), DM, HTN, HLD, hypothyroidism, and GERD, who presents due to h/a. ESBL UTI hyponatremia and h/a DM HTN HLD hypothyroid GERD -UA sensitivities reviewed 07/21/09, will treat with meropenem, ID consult -s/p 1L NS, h/a gone, will repeat Na -holding PO Dm meds; BGM q4h, ISS resume levemir 10 hs -lipitor 10 hs -resume enalapril -resume synthroid -resume ppi Problem List - Problem (1) Hyponatremia Code(s): E87.1 - HYPO-OSMOLALITY AND HYPONATREMIA (2) UTI (urinary tract infection) Code(s): N39.0 - URINARY TRACT INFECTION, SITE NOT SPECIFIED Qualifiers: Urinary tract infection type: acute cystitis Hematuria presence: without hematuria Qualified Code(s): N30.00 - Acute cystitis without hematuria Visit type - Emergency Visit Emergency Visit: Yes ED Registration Date: 07/24/18 Care time: The patient presented to the Emergency Department on the above date and was hospitalized for further evaluation of their emergent condition. - New Patient This patient is new to me today: Yes Date on this admission: 07/24/18 - Critical Care Critical Care patient: No
--- NOTE | 2018-07-24 03:35 | PN ---
Teaching Attending Note Name of Resident: Madison Gomes ATTENDING PHYSICIAN STATEMENT I saw and evaluated the patient. I reviewed the resident's note and discussed the case with the resident. I agree with the resident's findings and plan as documented. SUBJECTIVE: Patient is a 48 year old woman with PMH of insulin-treated DM, hypertension, hyperlipidemia, hypothyroidism, recurrent UTIs, hyponatremia and GERD, who presents to the ER with a complaint of headache. Noted to have hyponatremia which she says is always the case when she has headaches. Was seen in [facility] ER on 07/21/18 for UTI and discharged on Macrobid. Urine culture from 07/21/18 grew ESBL E Coli sensitive to Macrobid with a M.I.C of <32. OBJECTIVE: Alert Vital Signs Period Temp Pulse Resp BP Sys/Dunn Pulse Ox Last 24 Hr 98.2 F 86 20 138/84 100 HEENT: No Jaundice, eye redness or discharge, PERRLA, EOMI. Normocephalic, atraumatic. External ears are normal and hearing is grossly intact. No nasal discharge. Neck: Supple, nontender. No palpable adenopathy or thyromegaly. No JVD Chest: Good effort. Clear to auscultation and percussion. Heart: Regular. No S3, rub or murmur Abdomen: Not distended, soft, nontender and no HSM. No rebound or guarding. Normal bowel sounds. Ext: Peripheral pulses intact. No leg edema. Skin: Warm and dry. No petechiae, rash or ecchymosis. Neuro: Alert. Oriented x3. CN 2-12 grossly intact. Sensation grossly intact in all four extremities and DTR are symmetric. Psych: Appropriate mood and affect. Good insight. Home Medications Medication Instructions Recorded Enalapril Maleate 2.5 mg PO DAILY 08/04/16 Levothyroxine [Synthroid -] 50 mcg PO DAILY 08/04/16 Nateglinide [Starlix (Nf)] 60 mg PO AC 08/04/16 Pantoprazole Sodium 40 mg PO DAILY 08/04/16 Sitagliptin Phosphate [Januvia] 100 mg PO DAILY 08/04/16 metFORMIN HCL [Metformin HCl] 500 mg PO BID 08/04/16 Diclofenac Sodium [Voltaren] 100 gm TP ASDIR 10/02/17 Simvastatin [Zocor] 10 mg PO HS 10/02/17 Calcium Carbonate/Vitamin D3 1 each PO DAILY 05/28/18 [Calcium 500 + Vit D Caplet] Ferrous Sulfate [Iron] 325 mg PO DAILY 05/28/18 Insulin Glargine,Hum.rec.anlog 10 unit SQ HS 05/28/18 [Basaglar Kwikpen U-100] Magnesium Oxide [Magox 400] 400 mg PO BID 05/28/18 Vitamin B Complex 1 each PO DAILY 05/28/18 Nitrofurantoin Monohyd/M-Cryst 100 mg PO BID #14 capsule 07/21/18 [Macrobid -] Phenazopyridine HCl [Pyridium] 100 mg PO TID 2 Days #6 tablet 07/21/18 Abnormal Lab Results 07/24/18 07/24/18 01:10 01:10 MPV 7.4 L Sodium 124 L Chloride 90 L Random Glucose 231 H ALT 67 H ASSESSMENT AND PLAN: 1. Headache/Hyponatremia - Etiology of headache is unclear. No acute pathology on head CT and headache has responded to analgesics and IV fluids. Despite frequent presentations with hyponatremia, there is no evidence in her record that her hyponatremia has ever been comprehensively investigated to determine the cause. Will get serum and urine osmolarity, urine sodium, TSH and restrict free water intake. Consult nephrology. Will treat ESBL E.Coli with IV Ertapenem [address] her on isolation. 2. DM For now, we will hold the home diabetes drugs and implement sliding scale insulin regimen. Provide comprehensive diabetes care with patient teaching and counseling about the importance of adherence to prescribed diabetes regimen, euglycemia, eye care and foot care. 3. Hypertension - Restart outpatient antihypertensive drugs and revise regimen to ensure smooth [id number] good BP control. Nonpharmacologic measures to control hypertension like weight loss, salt restriction and exercise discussed. 4. DVT prophylaxis - Lovenox 40 mg SQ q 24 hours. 5. Advance directives - Full code
[2018-07-24] MEDS ORDERED: MEROPENEM 1 GM in DEXTROSE 5%-WATER 100 ML IVPB ONE (04:12)
[2018-07-24] MEDS ORDERED: MEROPENEM 1 GM VIAL (RESTRICTED TO ID) IVPB ONE (04:19)
[2018-07-24 04:46] LABS: PH,URINE 6.5 (5.0-8.0); URINE APPEARANCE CLEAR; URINE BILIRUBIN NEGATIVE (NEGATIVE); URINE COLOR DK YELLOW; URINE GLUCOSE (UA) TRACE (NEGATIVE); URINE KETONE NEGATIVE (NEGATIVE); URINE LEUK ESTERASE NEGATIVE (NEGATIVE); URINE NITRITE POSITIVE (NEGATIVE); URINE PROTEIN NEGATIVE (NEGATIVE); URINE UROBILINOGEN 0.2 mg/dL (0.2-1.0)
[2018-07-24] MEDS ORDERED: CEFTRIAXONE 1,000 MG in DEXTROSE 5%-WATER - 50 ML IVPB ONE (05:26)
[2018-07-24] MEDS ORDERED: VANCOMYCIN 1 GM in D5W (PRE-DOCKED) 1,000 MG/250 ML IVPB ONE (05:26)
[2018-07-24] MEDS ORDERED: VANCOMYCIN 1 GRAM (PRE-DOCKED) 1,000 MG/250 ML BAG IVPB ONE (05:43)
[2018-07-24] MEDS ORDERED: CEFTRIAXONE 1 GM/50 ML BAG ONE (05:44)
[2018-07-24 05:57] LABS: URINE RBC 1 /hpf (0-4); URINE WBC 1 /hpf (0-5)
[2018-07-24] MEDS ORDERED: PHENAZOPYRIDINE HCL 100 MG TABLET (FP) PO SCH (06:00)
[2018-07-24] MEDS ORDERED: LEVOTHYROXINE NA 25 MCG TABLET (FP) ONE (06:01)
[2018-07-24] MEDS ORDERED: INSULIN (NOVOLOG) ASPART 100 UNITS/ML 10ML VIAL ONE ×2 (06:02→10:47)
[2018-07-24] MEDS: INSULIN SLIDING SCALE (NOVOLOG) 1 VIAL SQ SCH ×3 (06:10→17:34)
[2018-07-24] MEDS ORDERED: diphenhydrAMINE HCL 25 MG CAPSULE (FP) PO ONE (06:38)
[2018-07-24] MEDS ORDERED: diphenhydrAMINE HCL 12.5 MG/5 ML UNIT-DOSE CUPS PO ONE (06:48)
[2018-07-24] MEDS ORDERED: LEVOTHYROXINE NA 50 MCG TABLET (FP) PO SCH (07:00)
[2018-07-24 07:33] LABS: BASO % 0.6 % (0-2.0); EOS % 2.3 % (0-4.5); HEMATOCRIT 32.8 % (32.4-45.2); HEMOGLOBIN 11.5 GM/dL (10.7-15.3); LYMPH % 36.1 % (8-40); MCH 28.8 pg (25.7-33.7); MEAN CELL VOLUME 82.4 fl (80-96); MEAN PLT VOLUME 7.5 fl (7.5-11.1); MONO % 8.8 % (3.8-10.2); NEUT % 52.2 % (42.8-82.8); PLATELET COUNT 289 K/MM3 (134-434); RBC 3.98 M/mm3 (3.60-5.2); RDW 13.5 % (11.6-15.6); WHITE BLOOD COUNT 4.7 K/mm3 (4.0-10.0)
[2018-07-24 08:15] LABS: ANION GAP 9 MMOL/L (8-16); BLOOD UREA NITROGEN 7 mg/dL (7-18); CALCIUM 8.8 mg/dL (8.5-10.1); CHLORIDE 98 mmol/L (98-107); CO2 23 mmol/L (21-32); CREATININE 0.7 mg/dL (0.55-1.3); MAGNESIUM 1.6 mg/dL (1.8-2.4); PHOSPHOROUS 4.1 mg/dL (2.5-4.9); POTASSIUM 4.2 mmol/L (3.5-5.1); SODIUM 130 mmol/L (136-145)
[2018-07-24 08:45] LABS: GLUCOSE,RANDOM 314 mg/dL (74-106)
[2018-07-24] MEDS ORDERED: sitaGLIPtin PHOSPHATE 100 MG TABLET (FP) PO SCH (10:00)
[2018-07-24] MEDS ORDERED: ENALAPRIL MALEATE 2.5 MG TABLET (FP) PO SCH (10:00)
[2018-07-24] MEDS ORDERED: MAGNESIUM OXIDE 400 MG TABLET (FP) PO SCH (10:00)
[2018-07-24] MEDS ORDERED: metFORMIN HCL 500 MG TABLET (FP) PO SCH (10:00)
[2018-07-24] MEDS ORDERED: PANTOPRAZOLE 40 MG TABLET (FP) PO SCH (10:00)
[2018-07-24] MEDS ORDERED: ENOXAPARIN NA (PORCINE) 40 MG/0.4 ML DISP.SYRIN SQ SCH (10:00)
--- NOTE | 2018-07-24 11:46 | CON.ID ---
Consult - History of Present Illness History of Present Illness: 48 y.o. female with PMH of IDDM, HTN, HLD, hypothyroidism, GERD, recurrent UTI, hyponatremia presents with c/o throbbing headache (7/10 intensity) that began last night. Son at bedside served as historical interpreter. Pain began in Lt side of neck to frontal head and has been constant. Pt was in the ER on Thursday for dysuria and diagnosed with UTI for which she was prescribed nitrofurantoin. States that she had 2 episodes of n/v afterwards. Denies fever, chills, audio/ visual disturbances, neck stiffness, or photophobia. In the ER noted to be hyponatremic ( Na 124) but afebrile with stable vitals. Of note, Urine cultures from 07/21/18 showed ESBL+ E.coli growth. Head CT scan preliminarily suggestive of mastoiditis. Pt was started on Ceftriaxone and Vancomycin . She developed itching sensation in her hands/chest/neck region but no rash during Vancomycin administration. Currently patient with decreased headache. Pt denies any recent facial/periauricular/mandibular pain and denies nasal discharge. Her headache has improved and denies any current dysuria. She has no other specific complaints. - History Source History Provided By: Patient, Family Member Limitations to Obtaining History: No Limitations - Past Medical History Cardio/Vascular: Yes: HTN, Hyperlipdemia Gastrointestinal: Yes: GERD Renal/: Yes: UTI Endocrine: Yes: Diabetes Mellitus - Alcohol/Substance Use Hx Alcohol Use: No - Smoking History Smoking history: Never smoked Have you smoked in the past 12 months: No Home Medications - Allergies Allergies/Adverse Reactions: Allergies Allergy/AdvReac Type Severity Reaction Status Date / Time No Known Allergies Allergy Verified 07/24/18 00:42 - Home Medications Home Medications: Ambulatory Orders Enalapril Maleate 2.5 mg PO DAILY 08/04/16 Levothyroxine [Synthroid -] 50 mcg PO DAILY 08/04/16 Nateglinide [Starlix (Nf)] 60 mg PO AC 08/04/16 Pantoprazole Sodium 40 mg PO DAILY 08/04/16 Sitagliptin Phosphate [Januvia] 100 mg PO DAILY 08/04/16 metFORMIN HCL [Metformin HCl] 500 mg PO BID 08/04/16 Diclofenac Sodium [Voltaren] 100 gm TP ASDIR 10/02/17 Simvastatin [Zocor] 10 mg PO HS 10/02/17 Calcium Carbonate/Vitamin D3 [Calcium 500 + Vit D Caplet] 1 each PO DAILY Ferrous Sulfate [Iron] 325 mg PO DAILY 05/28/18 Insulin Glargine,Hum.rec.anlog [Basaglar Kwikpen U-100] 10 unit SQ HS 05/28/18 Magnesium Oxide [Magox 400] 400 mg PO BID 05/28/18 Vitamin B Complex 1 each PO DAILY 05/28/18 Nitrofurantoin Monohyd/M-Cryst [Macrobid -] 100 mg PO BID #14 capsule 07/21/18 Phenazopyridine HCl [Pyridium] 100 mg PO TID 2 Days #6 tablet 07/21/18 Review of Systems - Review of Systems Constitutional: reports: No Symptoms Eyes: reports: No Symptoms HENT: reports: No Symptoms Neck: reports: No Symptoms Cardiovascular: reports: No Symptoms Respiratory: reports: No Symptoms Gastrointestinal: reports: No Symptoms Genitourinary: reports: No Symptoms Musculoskeletal: reports: No Symptoms Integumentary: reports: Pruritis Neurological: reports: No Symptoms Endocrine: reports: No Symptoms Hematology/Lymphatic: reports: No Symptoms Psychiatric: reports: No Symptoms Physical Exam Vital Signs: Vital Signs Temperature 98.1 F 07/24/18 04:36 Pulse Rate 76 07/24/18 04:36 Respiratory Rate 20 07/24/18 00:43 Blood Pressure 98/51 L 07/24/18 04:36 O2 Sat by Pulse Oximetry (%) 98 07/24/18 04:36 Constitutional: Yes: No Distress Eyes: Yes: Conjunctiva Clear, EOM Intact HENT: Yes: Atraumatic Neck: Yes: Supple Cardiovascular: Yes: Regular Rate and Rhythm Respiratory: Yes: CTA Bilaterally Gastrointestinal: Yes: Normal Bowel Sounds, Soft Renal/: Yes: Other (mild suprapubic pain) Musculoskeletal: Yes: WNL Extremities: Yes: WNL Edema: No Integumentary: Yes: WNL Neurological: Yes: Alert, Oriented ...Motor Strength: WNL Psychiatric: Yes: Alert Labs: CBC, BMP 07/24/18 06:30 07/24/18 06:30 Laboratory Tests 07/24/18 07/24/18 07/24/18 01:10 01:10 04:30 WBC 6.4 RBC 4.20 Hgb 11.9 Hct 34.6 MCV 82.5 MCH 28.4 MCHC 34.5 RDW 13.7 Plt Count 284 MPV 7.4 L Absolute Neuts (auto) 3.8 Neutrophils % 59.6 Lymphocytes % 27.8 Monocytes % 9.9 Eosinophils % 2.2 D Basophils % 0.5 Nucleated RBC % 0 Sodium 124 L Potassium 4.5 Chloride 90 L Carbon Dioxide 25 Anion Gap 8 BUN 9 Creatinine 0.6 Creat Clearance w eGFR 106.70 POC Glucometer Random Glucose 231 H Calcium 9.3 Phosphorus Magnesium Total Bilirubin 0.5 AST 36 ALT 67 H Alkaline Phosphatase 92 Total Protein 8.0 Albumin 4.0 Urine Color Dk yellow Urine Appearance Clear Urine pH 6.5 Ur Specific [place] 1.004 L Urine Protein Negative Urine Glucose (UA) Trace Urine Ketones Negative Urine Blood Negative Urine Nitrite Positive H Urine Bilirubin Negative Urine Urobilinogen 0.2 Ur Leukocyte Esterase Negative Urine WBC (Auto) 1 Urine RBC (Auto) 1 07/24/18 07/24/18 07/24/18 05:52 06:30 06:30 WBC 4.7 RBC 3.98 Hgb 11.5 Hct 32.8 MCV 82.4 MCH 28.8 MCHC 35.0 RDW 13.5 Plt Count 289 MPV 7.5 Absolute Neuts (auto) 2.4 Neutrophils % 52.2 Lymphocytes % 36.1 D Monocytes % 8.8 Eosinophils % 2.3 Basophils % 0.6 Nucleated RBC % 0 Sodium 130 L Potassium 4.2 Chloride 98 Carbon Dioxide 23 Anion Gap 9 BUN 7 Creatinine 0.7 Creat Clearance w eGFR 89.31 POC Glucometer 270 Random Glucose 314 H* Calcium 8.8 Phosphorus 4.1 Magnesium 1.6 L Total Bilirubin AST ALT Alkaline Phosphatase Total Protein Albumin Urine Color Urine Appearance Urine pH Ur Specific [place] Urine Protein Urine Glucose (UA) Urine Ketones Urine Blood Urine Nitrite Urine Bilirubin Urine Urobilinogen Ur Leukocyte Esterase Urine WBC (Auto) Urine RBC (Auto) 07/21/18: urine cx: ESBL +E.coli Imaging - Results Cat Scan: Pending Problem List - Problems (1) Hyponatremia Code(s): E87.1 - HYPO-OSMOLALITY AND HYPONATREMIA (2) Hyperglycemia Code(s): R73.9 - HYPERGLYCEMIA, UNSPECIFIED (3) UTI (urinary tract infection) Code(s): N39.0 - URINARY TRACT INFECTION, SITE NOT SPECIFIED Qualifiers: Urinary tract infection type: acute cystitis Hematuria presence: without hematuria Qualified Code(s): N30.00 - Acute cystitis without hematuria Assessment/Plan 48 y.o. female with PMH of IDDM, HTN, HLD, hypothyroidism, GERD, recurrent UTI, hyponatremia presents with c/o throbbing headache x 1 day. On nitrofurantoin for UTI. UTI - ESBL E.coli Headache R/O Mastoiditis Hyponatremia IDDM Hyperglycemia Hypothyroidsm -- agree with Meropenem -- F/U CT scan results -- will consider adding Clindamycin -- Hyponatremia - improved -- Diabetes control Pt is alert, afebrile Will follow Thank you
[2018-07-24] MEDS ORDERED: ONDANSETRON HCL 4 MG/5 ML UD CUPS ONE (11:58)
[2018-07-24] MEDS ORDERED: ONDANSETRON *ODT* 4 MG TABLET ONE (11:58)
[2018-07-24] MEDS ORDERED: MEROPENEM 500 MG in DEXTROSE 5%-WATER 100 ML IVPB SCH (12:00)
[2018-07-24 14:48] VITALS: BP 110/80; PULSE 99; TEMP 98.3
--- NOTE | 2018-07-24 17:56 | PN ---
Physical Exam: SUBJECTIVE: Patient seen and examined, has no complaints at this time OBJECTIVE: Vital Signs Period Temp Pulse Resp BP Sys/Dunn Pulse Ox Last 24 Hr 98.1 F-98.3 F 76-104 18-20 98-138/51-84 98-100 GENERAL: The patient is awake, alert, and fully oriented, in no acute distress. HEAD: Normal with no signs of trauma. EYES: PERRL, extraocular movements intact, sclera anicteric, conjunctiva clear. No ptosis. ENT: Ears normal, nares patent, oropharynx clear without exudates, moist mucous membranes. NECK: Trachea midline, full range of motion, supple. LUNGS: Breath sounds equal, clear to auscultation bilaterally, no wheezes, no crackles, no accessory muscle use. HEART: Regular rate and rhythm, S1, S2 without murmur, rub or gallop. ABDOMEN: Soft, nontender, nondistended, normoactive bowel sounds, no guarding, no rebound, no hepatosplenomegaly, no masses. EXTREMITIES: 2+ pulses, warm, well-perfused, no edema. NEUROLOGICAL: Cranial nerves II through XII grossly intact. Normal speech, gait not observed. PSYCH: Normal mood, normal affect. SKIN: Warm, dry, normal turgor, no rashes or lesions noted Laboratory Results - last 24 hr 07/24/18 07/24/18 07/24/18 01:10 01:10 04:30 WBC 6.4 RBC 4.20 Hgb 11.9 Hct 34.6 MCV 82.5 MCH 28.4 MCHC 34.5 RDW 13.7 Plt Count 284 MPV 7.4 L Absolute Neuts (auto) 3.8 Neutrophils % 59.6 Lymphocytes % 27.8 Monocytes % 9.9 Eosinophils % 2.2 D Basophils % 0.5 Nucleated RBC % 0 Sodium 124 L Potassium 4.5 Chloride 90 L Carbon Dioxide 25 Anion Gap 8 BUN 9 Creatinine 0.6 Creat Clearance w eGFR 106.70 POC Glucometer Random Glucose 231 H Calcium 9.3 Phosphorus Magnesium Total Bilirubin 0.5 AST 36 ALT 67 H Alkaline Phosphatase 92 Total Protein 8.0 Albumin 4.0 Urine Color Dk yellow Urine Appearance Clear Urine pH 6.5 Ur Specific [place] 1.004 L Urine Protein Negative Urine Glucose (UA) Trace Urine Ketones Negative Urine Blood Negative Urine Nitrite Positive H Urine Bilirubin Negative Urine Urobilinogen 0.2 Ur Leukocyte Esterase Negative Urine WBC (Auto) 1 Urine RBC (Auto) 1 07/24/18 07/24/18 07/24/18 05:52 06:30 06:30 WBC 4.7 RBC 3.98 Hgb 11.5 Hct 32.8 MCV 82.4 MCH 28.8 MCHC 35.0 RDW 13.5 Plt Count 289 MPV 7.5 Absolute Neuts (auto) 2.4 Neutrophils % 52.2 Lymphocytes % 36.1 D Monocytes % 8.8 Eosinophils % 2.3 Basophils % 0.6 Nucleated RBC % 0 Sodium 130 L Potassium 4.2 Chloride 98 Carbon Dioxide 23 Anion Gap 9 BUN 7 Creatinine 0.7 Creat Clearance w eGFR 89.31 POC Glucometer 270 Random Glucose 314 H* Calcium 8.8 Phosphorus 4.1 Magnesium 1.6 L Total Bilirubin AST ALT Alkaline Phosphatase Total Protein Albumin Urine Color Urine Appearance Urine pH Ur Specific [place] Urine Protein Urine Glucose (UA) Urine Ketones Urine Blood Urine Nitrite Urine Bilirubin Urine Urobilinogen Ur Leukocyte Esterase Urine WBC (Auto) Urine RBC (Auto) 07/24/18 17:01 WBC RBC Hgb Hct MCV MCH MCHC RDW Plt Count MPV Absolute Neuts (auto) Neutrophils % Lymphocytes % Monocytes % Eosinophils % Basophils % Nucleated RBC % Sodium Potassium Chloride Carbon Dioxide Anion Gap BUN Creatinine Creat Clearance w eGFR POC Glucometer 171 Random Glucose Calcium Phosphorus Magnesium Total Bilirubin AST ALT Alkaline Phosphatase Total Protein Albumin Urine Color Urine Appearance Urine pH Ur Specific [place] Urine Protein Urine Glucose (UA) Urine Ketones Urine Blood Urine Nitrite Urine Bilirubin Urine Urobilinogen Ur Leukocyte Esterase Urine WBC (Auto) Urine RBC (Auto) Active Medications Generic Name Dose Route Start Last Admin Trade Name Freq PRN Reason Stop Dose Admin Atorvastatin Calcium 10 mg 07/24/18 22:00 Lipitor - PO HS BEKAH Enalapril Maleate 2.5 mg 07/24/18 10:00 07/24/18 10:05 Vasotec - PO 2.5 mg DAILY BEKAH Administration Enoxaparin Sodium 40 mg 07/24/18 10:00 07/24/18 10:05 Lovenox - SQ 40 mg DAILY BEKAH Administration Meropenem 500 mg/ Dextrose 100 mls @ 200 mls/hr 07/24/18 12:00 07/24/18 12:44 IVPB 200 mls/hr Q8H-IV BEKAH Administration Insulin Aspart 1 vial 07/24/18 07:00 07/24/18 17:34 Novolog Vial Sliding Scale - SQ Not Given A[facility]S [facility] Protocol Insulin Detemir 10 units 07/24/18 22:00 Levemir Vial SQ HS BEKAH Levothyroxine Sodium 50 mcg 07/24/18 07:00 07/24/18 06:10 Synthroid - PO 50 mcg DAILY@0700 BEKAH Administration Magnesium Oxide 400 mg 07/24/18 10:00 07/24/18 10:05 Mag-Ox - PO 400 mg BID BEKAH Administration Pantoprazole Sodium 40 mg 07/24/18 10:00 07/24/18 10:05 Protonix - PO 40 mg DAILY BEKAH Administration ASSESSMENT/PLAN: Evaluated her she states that she has had no urinary complaints since she was treated last thursday adn the reason she came to the hospital was the ALVARADO and elevated BP. she has appointment with her bacteriologist medical in 4 days and is aware of the concerns about the UTI and hyponatermia and she states that she is willing ot follw up with her PMD nad bacteriologist medical as O/P and is going to AMA. Visit type - Emergency Visit Emergency Visit: Yes ED Registration Date: 07/24/18 Care time: The patient presented to the Emergency Department on the above date and was hospitalized for further evaluation of their emergent condition. - New Patient This patient is new to me today: Yes Date on this admission: 07/24/18 - Critical Care Critical Care patient: No - Discharge Referral Referred to [facility] No
--- NOTE | 2018-07-24 18:30 | CON.NEP ---
Consult Consult Specialty:: nephrology Referred by:: castillo Reason for Consultation:: hyponatremia - History of Present Illness Chief Complaint: headaches History of Present Illness: pt has h/o recurrent hyponatremia she has headaches when sodium is low she has been seen in [facility] and head ct were done apparently has no diagnosis of the cause meds reviewed here head ct shows sphenoid sinus thickening and mastoid air cells - History Source History Provided By: Patient, Family Member - Past Medical History Cardio/Vascular: Yes: HTN, Hyperlipdemia Gastrointestinal: Yes: GERD Renal/: Yes: UTI Endocrine: Yes: Diabetes Mellitus - Alcohol/Substance Use Hx Alcohol Use: No - Smoking History Smoking history: Never smoked Have you smoked in the past 12 months: No Home Medications - Allergies Allergies/Adverse Reactions: Allergies Allergy/AdvReac Type Severity Reaction Status Date / Time No Known Allergies Allergy Verified 07/24/18 00:42 - Home Medications Home Medications: Ambulatory Orders Enalapril Maleate 2.5 mg PO DAILY 08/04/16 Levothyroxine [Synthroid -] 50 mcg PO DAILY 08/04/16 Nateglinide [Starlix (Nf)] 60 mg PO AC 08/04/16 Pantoprazole Sodium 40 mg PO DAILY 08/04/16 Sitagliptin Phosphate [Januvia] 100 mg PO DAILY 08/04/16 metFORMIN HCL [Metformin HCl] 500 mg PO BID 08/04/16 Diclofenac Sodium [Voltaren] 100 gm TP ASDIR 10/02/17 Simvastatin [Zocor] 10 mg PO HS 10/02/17 Calcium Carbonate/Vitamin D3 [Calcium 500 + Vit D Caplet] 1 each PO DAILY Ferrous Sulfate [Iron] 325 mg PO DAILY 05/28/18 Insulin Glargine,Hum.rec.anlog [Basaglar Kwikpen U-100] 10 unit SQ HS 05/28/18 Magnesium Oxide [Magox 400] 400 mg PO BID 05/28/18 Vitamin B Complex 1 each PO DAILY 05/28/18 Nitrofurantoin Monohyd/M-Cryst [Macrobid -] 100 mg PO BID #14 capsule 07/21/18 Phenazopyridine HCl [Pyridium] 100 mg PO TID 2 Days #6 tablet 07/21/18 Nephrology Consult - Height Height: 5 ft - Weight Weight: 106 lb - BMI Body Mass Index (BMI): 20.7 - Lab Results CBC,BMP: CBC, BMP 07/24/18 06:30 07/24/18 06:30 Anion Gap: Anion Gap Anion Gap 9 MMOL/L (8-16) 07/24/18 06:30 - Physical Examination Vital Signs: Vital Signs Temperature 98.3 F 07/24/18 14:46 Pulse Rate 99 H 07/24/18 14:46 Respiratory Rate 18 07/24/18 14:46 Blood Pressure 110/80 07/24/18 14:46 O2 Sat by Pulse Oximetry (%) 100 07/24/18 14:46 Constitutional: Yes: Well Nourished, No Distress, Calm Eyes: Yes: WNL, Conjunctiva Clear, EOM Intact HENT: Yes: WNL, Atraumatic, Normocephalic Neck: Yes: WNL, Supple, Trachea Midline Cardiovascular: Yes: WNL, Regular Rate and Rhythm Respiratory: Yes: WNL, Regular, CTA Bilaterally Gastrointestinal: Yes: WNL, Normal Bowel Sounds Neurological: Yes: WNL, Alert, Oriented Psychiatric: Yes: WNL, Alert, Oriented Assessment/Plan Hyponatremia improved unclear caused -dilute urine suggests water drinking unlikely to be siadh if level is more than 126- can be managed as outpatient patient has appt with dr chand in office s/p infusion of normal saline rechececk labs and urine studies if she is admitted 07/24/18 04:30 Ur Specific [place] 1.004 L
[2018-07-24] MEDS ORDERED: ATORVASTATIN CA 10 MG TABLET (FP) PO SCH (22:00)
[2018-07-24] MEDS ORDERED: INSULIN (LEVEMIR) 100 UNITS/ML UNITS SQ SCH (22:00)
--- NOTE | 2018-07-26 10:40 | EKG ---
Test Reason : Blood Pressure : / mmHG Vent. Rate : 074 BPM Atrial Rate : 074 BPM P-R Int : 146 ms QRS Dur : 080 ms QT Int : 396 ms P-R-T Axes : 054 052 051 degrees QTc Int : 439 ms NORMAL SINUS RHYTHM NORMAL ECG NO PREVIOUS ECGS AVAILABLE Confirmed by CYNTHIA GARRISON MD ([id number]) on 07/26/2018 10:40:17 AM Referred By: Confirmed By:CYNTHIA GARRISON MD
== END 2018-07-24 18:34 | disposition left against medical advice (07) | DRG 425 ==
LOC: JER 23:42 → JERBED 07-24 02:11
PROVIDERS: ADMIT Internal Medicine; ATTEND Internal Medicine
DX: E87.1 Hypo-osmolality and hyponatremia (principal); N39.0 Urinary tract infection, site not specified; I10 Essential (primary) hypertension; E78.5 Hyperlipidemia, unspecified; K21.9 Gastro-esophageal reflux disease without esophagitis; E03.9 Hypothyroidism, unspecified; B96.20 Unspecified Escherichia coli [E. coli] as the cause of diseases classified elsewhere; Z16.12 Extended spectrum beta lactamase (ESBL) resistance; R51 Headache; E11.65 Type 2 diabetes mellitus with hyperglycemia
CPT/HCPCS: 36415; 70450-TC; 76775-TC; 76856-TC; 77063-TC; 77067-TC; 80048; 80053; 81003; 82962; 83735; 84100; 85025; 93005; 93010; 99283-25; J0131

== ENCOUNTER 2018-09-16 21:58 | Emergency (ER) | payer OTHER | END 2018-09-16 23:57 | disposition home or self-care (01) | LOC: JER 21:58 ==

== ENCOUNTER 2018-10-05 22:21 | Emergency (ER) | payer OTHER | END 2018-10-06 02:02 | disposition home or self-care (01) | LOC: JER 10-06 02:02 | DX: N30.00 Acute cystitis without hematuria (principal) ==

== ENCOUNTER 2018-11-28 00:18 | Inpatient (IN) | payer OTHER ==
[2018-11-28 00:49] VITALS: BMI 21.4
--- NOTE | 2018-11-28 02:11 | PDOC ---
Attending Attestation - Resident Resident Name: MlericPetey - ED Attending Attestation I have performed the following: I have examined & evaluated the patient, The case was reviewed & discussed with the resident, I agree w/resident's findings & plan - HPI HPI: 11/28/18 02:47 Pt comes with headache; she has known hx of headache and HTN and hyponatremia and she has been here multiple times for her ALVARADO and nothing helps it. - Physicial Exam PE: 11/28/18 02:48 Agree with resident exam. - Medical Decision Making 11/28/18 03:12 UA is normal; hcg negative. Chem pending 11/28/18 03:12 INR normal CBC normal WBC normal. 11/28/18 04:41 Patient Name: SUHAS OLIVA THIS IS A PRELIMINARY REPORT FROM [facility] DATE OF SERVICE: 2018-11-28 04:00:00 IMAGES: [id number] EXAM: HEAD CT WITHOUT CONTRAST HISTORY: Headache COMPARISON: None. FINDINGS: The ventricular system is midline and nondilated. Cortical atrophy is advanced for the patient's age. There is no bleed, mass, extra-axial fluid collection or mass effect. No skull fracture or skull lesion is identified. Left mastoid effusion indicates mastoiditis. The visualized paranasal sinuses and right mastoid air cells are clear. IMPRESSION: Left mastoiditis. No evidence of acute intracranial pathology. 11/28/18 04:42 Patient Name: SUHAS OLIVA THIS IS A PRELIMINARY REPORT FROM [facility] DATE OF SERVICE: 2018-11-28 04:02:44 IMAGES: [id number] EXAM: ABDOMEN \T\ PELVIS CT WITH CONTR HISTORY: Right lower quadrant pain COMPARISON: None. FINDINGS: Bilateral air trapping could indicate small airways disease.. The visualized cardiac chambers are normal size and configuration. Normal liver, gallbladder, pancreas , spleen, adrenal glands and kidneys. The stomach and abdominal small and large bowel are normal. There is no aortic aneurysm. There is no significant retroperitoneal lymphadenopathy. The pelvic small and large bowel are normal. The appendix is normal. The uterus and adnexal structures are normal. Urinary bladder is unremarkable. There is no pelvic free fluid. No discrete pelvic lymphadenopathy is identified. IMPRESSION: Possible small airways disease. No evidence of acute abdominal pelvic pathology 11/28/18 05:29 Pt will be treated with ABX for her mastoiditis. Pt will be admitted for her hyponatremia -- her Na+ is 128 and her home meds are clearly not sufficient. We are waiting to hear from the hospitalists
[2018-11-28] MEDS ORDERED: ACETAMINOPHEN 1000 MG/100 ML VIAL (NON FORMULARY) IVPB ONE (02:12)
[2018-11-28] MEDS ORDERED: METOCLOPRAMIDE HCL INJECTION 10 MG/2 ML VIAL IVPUSH ONE (02:13)
[2018-11-28] MEDS ORDERED: METOCLOPRAMIDE HCL INJECTION 10 MG/2 ML VIAL ONE (02:24)
[2018-11-28] MEDS ORDERED: ACETAMINOPHEN INJECTION 100 ML IVPB ONE (02:24)
[2018-11-28 02:31] LABS: URINE APPEARANCE CLEAR; URINE BILIRUBIN NEGATIVE (NEGATIVE); URINE COLOR YELLOW; URINE GLUCOSE (UA) NEGATIVE (NEGATIVE); URINE KETONE NEGATIVE (NEGATIVE); URINE LEUK ESTERASE NEGATIVE (NEGATIVE); URINE NITRITE NEGATIVE (NEGATIVE); URINE PROTEIN NEGATIVE (NEGATIVE); URINE UROBILINOGEN 0.2 mg/dL (0.2-1.0)
[2018-11-28 02:47] LABS: BASO % 0.7 % (0-2.0); EOS % 3.3 % (0-4.5); HEMOGLOBIN 11.8 GM/dL (10.7-15.3); LYMPH % 38.9 % (8-40); MCH 28.3 pg (25.7-33.7); MCHC 34.8 g/dl (32.0-36.0); MEAN CELL VOLUME 81.3 fl (80-96); MEAN PLT VOLUME 6.9 fl (7.5-11.1); MONO % 7.8 % (3.8-10.2); NEUT % 49.3 % (42.8-82.8); PLATELET COUNT 301 K/MM3 (134-434); RBC 4.18 M/mm3 (3.60-5.2); RDW 13.5 % (11.6-15.6); WHITE BLOOD COUNT 6.4 K/mm3 (4.0-10.0)
[2018-11-28 03:01] LABS: INR 1.02 (0.83-1.09)
[2018-11-28 03:16] LABS: ALBUMIN 4.2 g/dl (3.4-5.0); ALK PHOS 84 U/L (45-117); ANION GAP 11 MMOL/L (8-16); BILIRUBIN,TOTAL 0.3 mg/dL (0.2-1); BLOOD UREA NITROGEN 7.8 mg/dL (7-18); CALCIUM 9.2 mg/dL (8.5-10.1); CHLORIDE 92 mmol/L (98-107); CO2 25 mmol/L (21-32); CREATININE 0.7 mg/dL (0.55-1.3); GLUCOSE,RANDOM 157 mg/dL (74-106); SGOT/AST 18 U/L (15-37); SGPT/ALT 43 U/L (13-61); SODIUM 128 mmol/L (136-145); TOT PROT 7.9 g/dl (6.4-8.2)
--- NOTE | 2018-11-28 03:34 | PDOC ---
History of Present Illness - General Chief Complaint: Headache Stated Complaint: ABD PAIN/HEADACHE Time Seen by Provider: 11/28/18 02:04 History Source: Patient, Family Exam Limitations: Language Barrier - History of Present Illness Initial Comments: 11/28/18 03:31 Santos Cardenas is a 48F with PMH chronic UTI, hyponatremia, HTN, HLD, DM, hypothyroidism, GERD presenting with worse than normal headache, dizziness, abd pain. Has had 2 days of frontal headache that is worse than normal headaches. Denies photophobia. Nauseated without vomiting. Headache is constant and associated with room-spinning vertigo. Denies changes in vision, hearing, sensation. Per son-in-law present at bedside, has been having trouble sleeping recently due to home stressors. Able to walk but unsteady. Has had chronic hyponatremia for unknown reasons, takes sodium pills. Also having abdominal pain with burning and polyuria, no hematuria. Has history of multiple UTI in the past. Sees urologist but nothing found on evaluation. Past History - Past Medical History Allergies/Adverse Reactions: Allergies Allergy/AdvReac Type Severity Reaction Status Date / Time No Known Allergies Allergy Verified 11/28/18 00:47 Home Medications: Ambulatory Orders Enalapril Maleate 2.5 mg PO DAILY 08/04/16 Levothyroxine [Synthroid -] 50 mcg PO DAILY 08/04/16 Nateglinide [Starlix (Nf)] 60 mg PO AC 08/04/16 Pantoprazole Sodium 40 mg PO DAILY 08/04/16 Sitagliptin Phosphate [Januvia] 100 mg PO DAILY 08/04/16 metFORMIN HCL [Metformin HCl] 500 mg PO BID 08/04/16 Diclofenac Sodium [Voltaren] 100 gm TP ASDIR 10/02/17 Simvastatin [Zocor] 10 mg PO HS 10/02/17 Calcium Carbonate/Vitamin D3 [Calcium 500 + Vit D Caplet] 1 each PO DAILY Magnesium Oxide [Magox 400] 400 mg PO BID 05/28/18 Vitamin B Complex 1 each PO DAILY 05/28/18 Amoxicillin/Potassium Clav [Amox-Clav 875-125 mg Tablet] 1 each PO BID 11/28/18 Pentosan Polysulfate Sodium [Elmiron] 100 mg PO TID 11/28/18 Sodium Chloride Tablet - 1 gm PO TID 11/28/18 COPD: No Diabetes: Yes Hypercholesterolemia: Yes Thyroid Disease: Yes (HYPO) - Immunization History TDAP Vaccination: No Immunization Up to Date: Yes - Suicide/Smoking/Psychosocial Hx Smoking History: Never smoked Have you smoked in the past 12 months: No Information on smoking cessation initiated: No Hx Alcohol Use: No Drug/Substance Use Hx: No Substance Use Type: None Review of Systems - Review of Systems Able to Perform ROS?: Yes Is the patient limited Citizen Of [place] proficient: Yes Constitutional: Yes: Malaise. No: Chills, Fever, Weakness HEENTM: No: Blurred Vision, Nose Congestion, Tinnitus, Hearing Loss, Throat Pain , Throat Swelling Respiratory: No: Cough, Orthopnea, Shortness of Breath Cardiac (ROS): No: Chest Pain, Edema, Lightheadedness, Palpitations ABD/GI: Yes: Nausea. No: Blood Streaked Bowels, Constipated, Diarrhea, Vomiting : Yes: Burning, Frequency. No: Dysuria, Discharge, Flank Pain Musculoskeletal: No: Back Pain Integumentary: No: Bruising, Flushing Neurological: Yes: Headache (frontal, constant), Unsteady Gait, Other (vertigo) . No: Numbness, Paresthesia, Seizure, Tingling, Tremors Psychiatric: Yes: Stressors, Sleep Pattern Change (poor sleeping at night, no outside disruptions) Endocrine: No: Symptoms Reported Hematologic/Lymphatic: No: Symptoms Reported All Other Systems: Reviewed and Negative *Physical Exam - Vital Signs Last Vital Signs Temp Pulse Resp BP Pulse Ox 98.1 F 86 18 147/92 100 11/28/18 00:50 11/28/18 00:50 11/28/18 00:50 11/28/18 00:50 11/28/18 00:50 - Physical Exam General Appearance: Yes: Nourished, Appropriately Dressed, Moderate Distress, Thin HEENT: positive: EOMI, MITCH, Symmetrical, Pharynx Normal, Hearing Grossly Normal. negative: Pale Conjunctivae, Scleral Icterus (R), Scleral Icterus (L), Muffled/Hoarse voice, Rhinorrhea Neck: positive: Trachea midline, Normal Thyroid, Supple. negative: Tender, Lymphadenopathy (R), Lymphadenopathy (L) Respiratory/Chest: positive: Lungs Clear, Normal Breath Sounds. negative: Chest Tender, Respiratory Distress, Crackles, Rales, Rhonchi Cardiovascular: positive: Regular Rhythm, Regular Rate Gastrointestinal/Abdominal: positive: Normal Bowel Sounds, Flat, Soft. negative : Tender Musculoskeletal: positive: Normal Inspection. negative: CVA Tenderness Extremity: positive: Normal Capillary Refill, Normal Inspection, Normal Range of Motion Integumentary: positive: Normal Color, Dry, Warm Neurologic: positive: transfer professor II-XII NML intact, Fully Oriented, Alert, Normal Mood/ Affect, Normal Response, Other (unsteady gait when standing) ED Treatment Course - LABORATORY CBC & Chemistry Diagram: 11/28/18 02:37 11/28/18 02:37 - ADDITIONAL ORDERS Additional order review: Laboratory Results 11/28/18 11/28/18 11/28/18 02:37 02:37 02:20 PT with INR 12.00 INR 1.02 Sodium 128 L Potassium 4.0 Chloride 92 L Carbon Dioxide 25 Anion Gap 11 BUN 7.8 Creatinine 0.7 Est GFR (CKD-EPI)AfAm 118.74 Est GFR (CKD-EPI)NonAf 102.45 Random Glucose 157 H Calcium 9.2 Total Bilirubin 0.3 AST 18 ALT 43 Alkaline Phosphatase 84 Creatine Kinase 146 Troponin I < 0.02 Total Protein 7.9 Albumin 4.2 Urine Color Yellow Urine Appearance Clear Urine pH 7.0 D Ur Specific [place] 1.003 L Urine Protein Negative Urine Glucose (UA) Negative Urine Ketones Negative Urine Blood Negative Urine Nitrite Negative Urine Bilirubin Negative Urine Urobilinogen 0.2 Ur Leukocyte Esterase Negative Urine HCG, Qual 11/28/18 02:20 PT with INR INR Sodium Potassium Chloride Carbon Dioxide Anion Gap BUN Creatinine Est GFR (CKD-EPI)AfAm Est GFR (CKD-EPI)NonAf Random Glucose Calcium Total Bilirubin AST ALT Alkaline Phosphatase Creatine Kinase Troponin I Total Protein Albumin Urine Color Urine Appearance Urine pH Ur Specific [place] Urine Protein Urine Glucose (UA) Urine Ketones Urine Blood Urine Nitrite Urine Bilirubin Urine Urobilinogen Ur Leukocyte Esterase Urine HCG, Qual Negative 11/28/18 02:37 RBC 4.18 MCV 81.3 MCHC 34.8 RDW 13.5 MPV 6.9 L Neutrophils % 49.3 Lymphocytes % 38.9 Monocytes % 7.8 Eosinophils % 3.3 Basophils % 0.7 - Medications Given in the ED: ED Medications Discontinued Medications Generic Name Dose Route Start Last Admin Trade Name Freq PRN Reason Stop Dose Admin Acetaminophen 1,000 mg 11/28/18 02:12 11/28/18 02:37 Ofirmev Injection - IVPB 11/28/18 02:13 1,000 mg ONCE ONE Administration Diphenhydramine HCl 50 mg 11/28/18 02:12 11/28/18 02:37 Benadryl Injection - IVPB 11/28/18 02:13 50 mg ONCE ONE Administration Metoclopramide HCl 10 mg 11/28/18 02:13 11/28/18 02:38 Reglan Injection - IVPUSH 11/28/18 02:14 10 mg ONCE ONE Administration Medical Decision Making - Medical Decision Making 11/28/18 03:34 Santos Cardenas is a 48F with PMH chronic UTI, hyponatremia, HTN, HLD, DM, hypothyroidism, GERD presenting with worse than normal headache, dizziness, abd pain. Patient is having new onset worse headaches and vertigo sx concerning for new intracranial process vs. peripheral vertigo. Has history of mastoiditis and hyponatremia that could also be culprit. Hyponatreremia cause is unknown, patient has not had excess vomiting or diarrhea, has T2DM on metformin. Will evaluate headaches via CT head, CMP, CBC, ECG, cardiac profile, TSH, free T4. Given tylenol, reglan, and benadryl as headache cocktail. Will evaluate ABD pain via CT abd, UA, UC. 11/28/18 05:01 CMP shows hyponatremia to 128 with glucose 157. No elevated WBC. CT Head shows no acute intracranial abnormalities. CT abd shows no acute abnormalities. Starting 1L NS for Na correction. 11/28/18 05:[address] Mejia for admission to floor under Dr. Lopez. *DC/Admit/Observation/Transfer Diagnosis at time of Disposition: Hyponatremia Headache Qualifiers: Headache type: unspecified Headache chronicity pattern: acute headache - Discharge Dispostion Condition at time of disposition: Fair Decision to Admit order: Yes - Referrals - Patient Instructions - Post Discharge Activity
[2018-11-28] MEDS ORDERED: SODIUM CHLORIDE 1,000 ML IV STA (04:35)
[2018-11-28] MEDS ORDERED: AMPICILLIN NA/SULBACTAM NA 1.5 GM in SODIUM CHLORIDE 100 ML IVPB ONE (04:46)
--- NOTE | 2018-11-28 05:09 | PN ---
Teaching Attending Note Name of Resident: Anju Iglesias ATTENDING PHYSICIAN STATEMENT I saw and evaluated the patient. I reviewed the resident's note and discussed the case with the resident. I agree with the resident's findings and plan as documented. SUBJECTIVE: Patient is a 48 year old woman with a PMH of Chronic/recurrent UTI (ESBL E.coli) , Hyponatremia, HTN, HLD, NIDDM, Hypothyroidism and GERD presenting with worse than normal headache, dizziness and abdominal pain. Has had wo days of frontal headache that is worse than her normal headaches. Denies photophobia. has nausea but no vomiting. Headache is constant and associated with room-spinning vertigo. Denies changes in vision, hearing or sensation. Per son-in-law present at bedside, has been having trouble sleeping recently due to home stressors. Able to walk but unsteady. Has had chronic hyponatremia for unknown reasons and takes sodium pills. Also having abdominal pain with burning and polyuria, no hematuria. Has history of multiple UTI in the past. Sees urologist but nothing found on evaluation. OBJECTIVE: Alert Vital Signs Period Temp Pulse Resp BP Sys/Dunn Pulse Ox Last 24 Hr 98.1 F-98.8 F 84-86 12-18 141-147/89-92 100-100 HEENT: No Jaundice, eye redness or discharge, PERRLA, EOMI. Normocephalic, atraumatic. External ears are normal and hearing is grossly intact. No nasal discharge. Neck: Supple, nontender. No palpable adenopathy or thyromegaly. No JVD Chest: Good effort. Clear to auscultation and percussion. Heart: Regular. No S3, rub or murmur Abdomen: Not distended, soft, suprapubic tenderness and no HSM. No rebound or guarding. Normal bowel sounds. Ext: Peripheral pulses intact. No leg edema. Skin: Warm and dry. No petechiae, rash or ecchymosis. Neuro: Alert. Oriented x3. CN 2-12 grossly intact. Sensation grossly intact in all four extremities and DTR are symmetric. Psych: Appropriate mood and affect. Good insight. Current Medications Generic Name Dose Route Start Last Admin Trade Name Freq PRN Reason Stop Dose Admin Sodium Chloride 1,000 mls @ 1,000 mls/hr 11/28/18 04:35 Normal Saline - IV 11/28/18 05:34 ASDIR STA Ampicillin Sodium/Sulbactam 100 mls @ 200 mls/hr 11/28/18 04:46 Sodium 1.5 gm/ Sodium Chloride IVPB 11/28/18 05:15 ONCE ONE Home Medications Medication Instructions Recorded Enalapril Maleate 2.5 mg PO DAILY 08/04/16 Levothyroxine [Synthroid -] 50 mcg PO DAILY 08/04/16 Nateglinide [Starlix (Nf)] 60 mg PO AC 08/04/16 Pantoprazole Sodium 40 mg PO DAILY 08/04/16 Sitagliptin Phosphate [Januvia] 100 mg PO DAILY 08/04/16 metFORMIN HCL [Metformin HCl] 500 mg PO BID 08/04/16 Diclofenac Sodium [Voltaren] 100 gm TP ASDIR 10/02/17 Simvastatin [Zocor] 10 mg PO HS 10/02/17 Calcium Carbonate/Vitamin D3 1 each PO DAILY 05/28/18 [Calcium 500 + Vit D Caplet] Magnesium Oxide [Magox 400] 400 mg PO BID 05/28/18 Vitamin B Complex 1 each PO DAILY 05/28/18 Amoxicillin/Potassium Clav 1 each PO BID 11/28/18 [Amox-Clav 875-125 mg Tablet] Pentosan Polysulfate Sodium 100 mg PO TID 11/28/18 [Elmiron] Sodium Chloride Tablet - 1 gm PO TID 11/28/18 Abnormal Lab Results 11/28/18 11/28/18 11/28/18 02:20 02:37 02:37 MPV 6.9 L Sodium 128 L Chloride 92 L Random Glucose 157 H Ur Specific [place] 1.003 L ASSESSMENT AND PLAN: 1. Headache/Abdominal pain/Hyponatremia - Cause of headache is unclear. Noncontrast Head CT showed evidence of left mastoid effusion indicating possible mastoiditis, however head CT from 07/24/18 also showed fluid collection within the left mastoid air cells. Patient is afebrile and does not have leukocytosis. Will withhold antibiotics and get ENT evaluation. Headache is a common side effect of Elmiron - will hold Elmiron and continue tylenol for headache. No obvious cause for her abdominal pain. She may have "bladder neuropathy" / "painful bladder syndrome" after multiple bouts of cystitis or "interstitial cystitis". No indication to treat with antibiotics for UTI at this time. No significant abnormality noted on CT abdomen/pelvis with contrast. Consult urology and ID. Chronic hyponatremia has been extensively investigated with cause not identified. Got I liter IV NS in the ER. Will restrict free water intake, correct hyperglycemia and repeat BMP. 2. DM For now, we will hold the home diabetes drugs and implement sliding scale insulin regimen. Provide comprehensive diabetes care with patient teaching and counseling about the importance of adherence to prescribed diabetes regimen, euglycemia, eye care and foot care. 3. Hypertension - Restart suitable outpatient antihypertensive drugs when clinically appropriate. Revise regimen to ensure [id number] excellent BP control and certified drug counselor patient on the injurious effects of uncontrolled hypertension. Nonpharmacologic measures to control hypertension like weight loss , salt restriction and exercise discussed. Importance of adherence to treatment regimen and attainment of normotension emphasized. 4. DVT prophylaxis - Lovenox 40 mg SQ q 24 hours. 5. Advance directives - Full code
[2018-11-28] MEDS ORDERED: ACETAMINOPHEN 325 MG TABLET (FP) PO PRN (06:23)
--- NOTE | 2018-11-28 06:44 | HP ---
CHIEF COMPLAINT: suprapubic pain, headache PCP: Dr. Claudia Skinner HISTORY OF PRESENT ILLNESS: 48 y.o. F PMH chronic UTIs, HTN, HLD, DM, hypothyroidism, chronic mastoiditis, GERD presenting with a frontal headache since 8PM, suprapubic pain, nausea, polyuria and dizziness as per pt's son in law who was translating for her. Patient's headache is dull and localized to frontal region. The suprapubic pain is intermittent and has been present for several months. Pt follow ups regularly with her PCP (Dr. Skinner) last visit 1 week ago. As per pts son in law, pt has followed up regularly with a urologist (Dr. Giorgio Gonzalez)- they have done a full workup with no significant findings for causes of recurrent UTIs or suprapubic pain. ER course was notable for: (1) 1 bolus NS (2) Unasyn 1.5g IV, d/c'd (3) CT abd/ pel neg; CT head showed evidence of left mastoid effusion indicating possible mastoiditis Recent Travel: denies PAST MEDICAL HISTORY: as above PAST SURGICAL HISTORY: Denies Social History: Denies x3 Smoking: Alcohol: Drugs: Family History: DM in mother & father Allergies No Known Allergies Allergy (Verified 11/28/18 00:47) HOME MEDICATIONS: Home Medications Medication Instructions Recorded Enalapril Maleate 2.5 mg PO DAILY 08/04/16 Levothyroxine [Synthroid -] 50 mcg PO DAILY 08/04/16 Nateglinide [Starlix (Nf)] 60 mg PO AC 08/04/16 Pantoprazole Sodium 40 mg PO DAILY 08/04/16 Sitagliptin Phosphate [Januvia] 100 mg PO DAILY 08/04/16 metFORMIN HCL [Metformin HCl] 500 mg PO BID 08/04/16 Diclofenac Sodium [Voltaren] 100 gm TP ASDIR 10/02/17 Simvastatin [Zocor] 10 mg PO HS 10/02/17 Calcium Carbonate/Vitamin D3 1 each PO DAILY 05/28/18 [Calcium 500 + Vit D Caplet] Magnesium Oxide [Magox 400] 400 mg PO BID 05/28/18 Vitamin B Complex 1 each PO DAILY 05/28/18 Amoxicillin/Potassium Clav 1 each PO BID 11/28/18 [Amox-Clav 875-125 mg Tablet] Pentosan Polysulfate Sodium 100 mg PO TID 11/28/18 [Elmiron] Sodium Chloride Tablet - 1 gm PO TID 11/28/18 REVIEW OF SYSTEMS CONSTITUTIONAL: Absent: fever, chills, diaphoresis, generalized weakness, malaise, loss of appetite, weight change HEENT: Absent: rhinorrhea, nasal congestion, throat pain, throat swelling, difficulty swallowing, mouth swelling, ear pain, eye pain, visual changes CARDIOVASCULAR: Absent: chest pain, syncope, palpitations, irregular heart rate, lightheadedness , peripheral edema RESPIRATORY: Absent: cough, shortness of breath, dyspnea with exertion, orthopnea, wheezing, stridor, hemoptysis GASTROINTESTINAL: Absent: abdominal pain, abdominal distension, nausea, vomiting, diarrhea, constipation, melena, hematochezia GENITOURINARY: Absent: dysuria, frequency, urgency, hesitancy, hematuria, flank pain, genital pain MUSCULOSKELETAL: Absent: myalgia, arthralgia, joint swelling, back pain, neck pain SKIN: Absent: rash, itching, pallor HEMATOLOGIC/IMMUNOLOGIC: Absent: easy bleeding, easy bruising, lymphadenopathy, frequent infections ENDOCRINE: Absent: unexplained weight gain, unexplained weight loss, heat intolerance, cold intolerance NEUROLOGIC: Absent: headache, focal weakness or paresthesias, dizziness, unsteady gait, seizure, mental status changes, bladder or bowel incontinence PSYCHIATRIC: Absent: anxiety, depression, suicidal or homicidal ideation, hallucinations. PHYSICAL EXAMINATION Vital Signs - 24 hr 11/28/18 11/28/18 00:47 00:50 Temperature 98.8 F 98.1 F Pulse Rate 84 Pulse Rate [ 86 Left Apical] Respiratory 12 18 Rate Blood Pressure 141/89 Blood Pressure 147/92 [Right Arm] O2 Sat by Pulse 100 100 Oximetry (%) GENERAL: Awake, alert, and fully oriented, in no acute distress. HEENT: NCAT. PERRLA. EOMI. Ears & nares patent. No sinus tenderness. LUNGS: Breath sounds equal, clear to auscultation bilaterally. No wheezes, and no crackles. No accessory muscle use. HEART: Regular rate and rhythm, normal S1 and S2 without murmur, rub or gallop. ABDOMEN: TTP LLQ, RLQ, suprapubic tenderness. Soft, not distended, normoactive bowel sounds. MUSCULOSKELETAL: Normal ROM. No CVA tenderness. UPPER EXTREMITIES: 2+ pulses, warm, well-perfused. No cyanosis. No clubbing. No peripheral edema. LOWER EXTREMITIES: 2+ pulses, warm, well-perfused. No calf tenderness. No peripheral edema. Laboratory Results - last 24 hr 11/28/18 11/28/18 11/28/18 02:20 02:20 02:37 WBC RBC Hgb Hct MCV MCH MCHC RDW Plt Count MPV Absolute Neuts (auto) Neutrophils % Lymphocytes % Monocytes % Eosinophils % Basophils % Nucleated RBC % PT with INR INR Sodium 128 L Potassium 4.0 Chloride 92 L Carbon Dioxide 25 Anion Gap 11 BUN 7.8 Creatinine 0.7 Est GFR (CKD-EPI)AfAm 118.74 Est GFR (CKD-EPI)NonAf 102.45 Random Glucose 157 H Calcium 9.2 Total Bilirubin 0.3 AST 18 ALT 43 Alkaline Phosphatase 84 Creatine Kinase 146 Troponin I < 0.02 Total Protein 7.9 Albumin 4.2 TSH Urine Color Yellow Urine Appearance Clear Urine pH 7.0 D Ur Specific [place] 1.003 L Urine Protein Negative Urine Glucose (UA) Negative Urine Ketones Negative Urine Blood Negative Urine Nitrite Negative Urine Bilirubin Negative Urine Urobilinogen 0.2 Ur Leukocyte Esterase Negative Urine HCG, Qual Negative 11/28/18 11/28/18 11/28/18 02:37 02:37 03:32 WBC 6.4 RBC 4.18 Hgb 11.8 Hct 34.0 MCV 81.3 MCH 28.3 MCHC 34.8 RDW 13.5 Plt Count 301 MPV 6.9 L Absolute Neuts (auto) 3.2 Neutrophils % 49.3 Lymphocytes % 38.9 Monocytes % 7.8 Eosinophils % 3.3 Basophils % 0.7 Nucleated RBC % 0 PT with INR 12.00 INR 1.02 Sodium Potassium Chloride Carbon Dioxide Anion Gap BUN Creatinine Est GFR (CKD-EPI)AfAm Est GFR (CKD-EPI)NonAf Random Glucose Calcium Total Bilirubin AST ALT Alkaline Phosphatase Creatine Kinase Troponin I Total Protein Albumin TSH 2.20 Urine Color Urine Appearance Urine pH Ur Specific [place] Urine Protein Urine Glucose (UA) Urine Ketones Urine Blood Urine Nitrite Urine Bilirubin Urine Urobilinogen Ur Leukocyte Esterase Urine HCG, Qual ASSESSMENT/PLAN: 48 y.o. F PMH chronic UTIs, HTN, HLD, DM, hypothyroidism, chronic mastoiditis, GERD presenting with headache and abdominal pain. #Abdominal pain -Tylenol PRN -CT abd pel neg -Afebrile, normocardic -Uro consulted (Dr. Vincent) #Headache -CT head shows poss mastoiditis; previous CT hea in July this year shows similar findings -S/p 1 Unasyn dose -S/p 1L NS bolus -Hold Elmiron (home med) -Tylenol PRN #Chronic hyponatremia -Restrict free water intake 800mLs -Repeat BMP in AM #HTN -Enalapril 2.5 PO daily (home med) #HLD -Simvastatin 10mg daily (home med) #DM -Holding oral agents -ISS -BGM #Hypothyroidism -C/w synthroid 50mcg daily #FEN -PO fluid restrx 800ml -Monitor lytes -Diabetic diet #DVT PPX -LVX 40mg SQ daily Visit type - Emergency Visit Emergency Visit: Yes ED Registration Date: 11/28/18 Care time: The patient presented to the Emergency Department on the above date and was hospitalized for further evaluation of their emergent condition. - New Patient This patient is new to me today: Yes Date on this admission: 11/28/18 - Critical Care Critical Care patient: No ATTENDING PHYSICIAN STATEMENT I saw and evaluated the patient. I reviewed the resident's note and discussed the case with the resident. I agree with the resident's findings and plan as documented. SUBJECTIVE: OBJECTIVE: ASSESSMENT AND PLAN:
[2018-11-28] MEDS: INSULIN SLIDING SCALE (NOVOLOG) 1 VIAL SQ SCH ×3 (08:14→17:30)
[2018-11-28] MEDS ORDERED: LEVOTHYROXINE NA 25 MCG TABLET (FP) ONE (08:24)
[2018-11-28] MEDS: LEVOTHYROXINE NA 50 MCG TABLET (FP) PO SCH (08:52)
[2018-11-28] MEDS ORDERED: PATIENT'S OWN MEDICATION (NON-FORMULARY) (Vitamin B Complex [Vitamin B Complex] 1 EACH) PO SCH (10:00)
[2018-11-28] MEDS ORDERED: ENALAPRIL MALEATE 2.5 MG TABLET (FP) PO SCH (10:00)
[2018-11-28] MEDS: VITAMIN B COMPLEX W/C COMBO TABLET (FP) PO SCH (11:00)
[2018-11-28] MEDS: PANTOPRAZOLE 40 MG TABLET (FP) PO SCH (11:00)
[2018-11-28] MEDS: CALCIUM 500MG/VIT-D 200 UNITS COMBO TABLET (FP) PO SCH (11:00)
[2018-11-28] MEDS: ENOXAPARIN NA (PORCINE) 40 MG/0.4 ML DISP.SYRIN SQ SCH (11:00)
--- NOTE | 2018-11-28 11:31 | EKG ---
Test Reason : Blood Pressure : / mmHG Vent. Rate : 074 BPM Atrial Rate : 074 BPM P-R Int : 160 ms QRS Dur : 078 ms QT Int : 368 ms P-R-T Axes : 049 034 037 degrees QTc Int : 408 ms NORMAL SINUS RHYTHM NORMAL ECG WHEN COMPARED WITH ECG OF 24-JUL-2018 01:58, NO SIGNIFICANT CHANGE WAS FOUND Confirmed by JAMIL CALLE MD ([id number]) on 11/28/2018 11:31:06 AM Referred By: WHIT Confirmed By:JAMIL CALLE MD
--- NOTE | 2018-11-28 12:43 | PN ---
Physical Exam: SUBJECTIVE: Patient seen and examined she is comfortable and she has no symptoms ate breakfast and no nausea and vomiting she was translated by her son OBJECTIVE: Vital Signs Period Temp Pulse Resp BP Sys/Dunn Pulse Ox Last 24 Hr 97.3 F-98.8 F 84-88 12-18 103-147/78-92 99-100 GENERAL: The patient is awake, alert, and fully oriented, in no acute distress. HEAD: Normal with no signs of trauma. EYES: PERRL, extraocular movements intact, sclera anicteric, conjunctiva clear. No ptosis. ENT: Ears normal, nares patent, oropharynx clear without exudates, moist mucous membranes. NECK: Trachea midline, full range of motion, supple. LUNGS: Breath sounds equal, clear to auscultation bilaterally, no wheezes, no crackles, no accessory muscle use. HEART: Regular rate and rhythm, S1, S2 without murmur, rub or gallop. ABDOMEN: Soft, nontender, nondistended, normoactive bowel sounds, no guarding, no rebound, no hepatosplenomegaly, no masses. EXTREMITIES: 2+ pulses, warm, well-perfused, no edema. NEUROLOGICAL: Cranial nerves II through XII grossly intact. Normal speech, gait not observed. PSYCH: Normal mood, normal affect. SKIN: Warm, dry, normal turgor, no rashes or lesions noted Laboratory Results - last 24 hr 11/28/18 11/28/18 11/28/18 02:20 02:20 02:37 WBC RBC Hgb Hct MCV MCH MCHC RDW Plt Count MPV Absolute Neuts (auto) Neutrophils % Lymphocytes % Monocytes % Eosinophils % Basophils % Nucleated RBC % PT with INR INR Sodium 128 L Potassium 4.0 Chloride 92 L Carbon Dioxide 25 Anion Gap 11 BUN 7.8 Creatinine 0.7 Est GFR (CKD-EPI)AfAm 118.74 Est GFR (CKD-EPI)NonAf 102.45 POC Glucometer Random Glucose 157 H Calcium 9.2 Total Bilirubin 0.3 AST 18 ALT 43 Alkaline Phosphatase 84 Creatine Kinase 146 Troponin I < 0.02 Total Protein 7.9 Albumin 4.2 TSH Urine Color Yellow Urine Appearance Clear Urine pH 7.0 D Ur Specific [place] 1.003 L Urine Protein Negative Urine Glucose (UA) Negative Urine Ketones Negative Urine Blood Negative Urine Nitrite Negative Urine Bilirubin Negative Urine Urobilinogen 0.2 Ur Leukocyte Esterase Negative Urine HCG, Qual Negative 11/28/18 11/28/18 11/28/18 02:37 02:37 03:32 WBC 6.4 RBC 4.18 Hgb 11.8 Hct 34.0 MCV 81.3 MCH 28.3 MCHC 34.8 RDW 13.5 Plt Count 301 MPV 6.9 L Absolute Neuts (auto) 3.2 Neutrophils % 49.3 Lymphocytes % 38.9 Monocytes % 7.8 Eosinophils % 3.3 Basophils % 0.7 Nucleated RBC % 0 PT with INR 12.00 INR 1.02 Sodium Potassium Chloride Carbon Dioxide Anion Gap BUN Creatinine Est GFR (CKD-EPI)AfAm Est GFR (CKD-EPI)NonAf POC Glucometer Random Glucose Calcium Total Bilirubin AST ALT Alkaline Phosphatase Creatine Kinase Troponin I Total Protein Albumin TSH 2.20 Urine Color Urine Appearance Urine pH Ur Specific [place] Urine Protein Urine Glucose (UA) Urine Ketones Urine Blood Urine Nitrite Urine Bilirubin Urine Urobilinogen Ur Leukocyte Esterase Urine HCG, Qual 11/28/18 07:55 WBC RBC Hgb Hct MCV MCH MCHC RDW Plt Count MPV Absolute Neuts (auto) Neutrophils % Lymphocytes % Monocytes % Eosinophils % Basophils % Nucleated RBC % PT with INR INR Sodium Potassium Chloride Carbon Dioxide Anion Gap BUN Creatinine Est GFR (CKD-EPI)AfAm Est GFR (CKD-EPI)NonAf POC Glucometer 142 Random Glucose Calcium Total Bilirubin AST ALT Alkaline Phosphatase Creatine Kinase Troponin I Total Protein Albumin TSH Urine Color Urine Appearance Urine pH Ur Specific [place] Urine Protein Urine Glucose (UA) Urine Ketones Urine Blood Urine Nitrite Urine Bilirubin Urine Urobilinogen Ur Leukocyte Esterase Urine HCG, Qual Active Medications Generic Name Dose Route Start Last Admin Trade Name Festusq PRN Reason Stop Dose Admin Acetaminophen 650 mg 11/28/18 06:23 Tylenol - PO Q6H PRN Fever Or Pain Atorvastatin Calcium 10 mg 11/28/18 22:00 Lipitor - PO HS [facility] Calcium Carbonate/Cholecalciferol 1 tab 11/28/18 10:00 11/28/18 11:00 Os-Tim 500+D - PO 1 tab DAILY BEKAH Administration Enalapril Maleate 2.5 mg 11/28/18 10:00 11/28/18 11:00 Vasotec - PO 2.5 mg DAILY BEK[facility] Administration Enoxaparin Sodium 40 mg 11/28/18 10:00 11/28/18 11:00 Lovenox - SQ 40 mg DAILY BEKAH Administration Insulin Aspart 1 vial 11/28/18 07:00 11/28/18 08:14 Novolog Vial Sliding Scale - SQ Not Given ACHS [facility] Protocol Levothyroxine Sodium 50 mcg 11/28/18 07:00 11/28/18 08:52 Synthroid - PO 50 mcg ACBK BEKAH Administration Multivitamins 1 each 11/28/18 10:00 11/28/18 11:00 Total B With C - PO 1 each DAILY BEK[facility] Administration Pantoprazole Sodium 40 mg 11/28/18 10:00 11/28/18 11:00 Protonix - PO 40 mg DAILY [facility] Administration ASSESSMENT/PLAN: 48 y.o. F PMH chronic UTIs, HTN, HLD, DM, hypothyroidism, chronic mastoiditis, GERD presenting with headache and abdominal pain. #Abdominal pain -Tylenol PRN pain is better now #Headache -CT head shows poss mastoiditis; previous CT hea in July this year shows similar findings she is better ,Tylenol PRN #Chronic hyponatremia -Restrict free water intake 800mLs -Repeat BMP sodium is 128 and will repeat am #HTN -Enalapril 2.5 PO daily (home med) #HLD -Simvastatin 10mg daily (home med) #DM -BGM #Hypothyroidism -C/w synthroid 50mcg daily Visit type - Emergency Visit Emergency Visit: Yes ED Registration Date: 11/28/18 Care time: The patient presented to the Emergency Department on the above date and was hospitalized for further evaluation of their emergent condition. - New Patient This patient is new to me today: Yes Date on this admission: 11/28/18 - Critical Care Critical Care patient: No - Discharge Referral Referred to [facility] Med P.C.: No
[2018-11-28] MEDS ORDERED: INSULIN (NOVOLOG) ASPART 100 UNITS/ML 10ML VIAL ONE (13:06)
[2018-11-28] MEDS ORDERED: ATORVASTATIN CA 10 MG TABLET (FP) PO SCH (22:00)
[2018-11-28] MEDS ORDERED: PATIENT'S OWN MEDICATION (NON-FORMULARY) (Simvastatin 10 MG) PO SCH (22:00)
[2018-11-29] MEDS: INSULIN SLIDING SCALE (NOVOLOG) 1 VIAL SQ SCH ×4 (00:43→16:10)
[2018-11-29] MEDS: LEVOTHYROXINE NA 50 MCG TABLET (FP) PO SCH (06:30)
[2018-11-29 07:23] LABS: BASO % 0.8 % (0-2.0); EOS % 2.6 % (0-4.5); HEMATOCRIT 33.8 % (32.4-45.2); HEMOGLOBIN 11.8 GM/dL (10.7-15.3); LYMPH % 34.8 % (8-40); MCH 28.7 pg (25.7-33.7); MCHC 34.9 g/dl (32.0-36.0); MEAN CELL VOLUME 82.3 fl (80-96); MEAN PLT VOLUME 7.1 fl (7.5-11.1); MONO % 7.7 % (3.8-10.2); NEUT % 54.1 % (42.8-82.8); PLATELET COUNT 289 K/MM3 (134-434); RDW 14.1 % (11.6-15.6); WHITE BLOOD COUNT 6.3 K/mm3 (4.0-10.0)
[2018-11-29 07:44] LABS: ALBUMIN 3.9 g/dl (3.4-5.0); BILIRUBIN,TOTAL 0.3 mg/dL (0.2-1); BLOOD UREA NITROGEN 9.9 mg/dL (7-18); CALCIUM 9.2 mg/dL (8.5-10.1); CREATININE 0.7 mg/dL (0.55-1.3); MAGNESIUM 1.9 mg/dL (1.8-2.4); PHOSPHOROUS 4.8 mg/dL (2.5-4.9); POTASSIUM 4.2 mmol/L (3.5-5.1); TOT PROT 7.3 g/dl (6.4-8.2)
--- NOTE | 2018-11-29 07:59 | PN ---
Progress Note, Physician - Current Medication List Current Medications: Active Medications Acetaminophen (Tylenol -) 650 mg PO Q6H PRN PRN Reason: Fever Or Pain Last Admin: 11/29/18 00:15 Dose: 650 mg Atorvastatin Calcium (Lipitor -) 10 mg PO HS [facility] Last Admin: 11/29/18 00:00 Dose: 10 mg Calcium Carbonate/Cholecalciferol (Os-Tim 500+D -) 1 tab PO DAILY [facility] Last Admin: 11/28/18 11:00 Dose: 1 tab Enalapril Maleate (Vasotec -) 2.5 mg PO DAILY [facility] Last Admin: 11/28/18 11:00 Dose: 2.5 mg Enoxaparin Sodium (Lovenox -) 40 mg SQ DAILY [facility] Last Admin: 11/28/18 11:00 Dose: 40 mg Insulin Aspart (Novolog Vial Sliding Scale -) [address] [facility]; Protocol Last Admin: 11/29/18 06:30 Dose: Not Given Levothyroxine Sodium (Synthroid -) 50 mcg PO ACBK [facility] Last Admin: 11/29/18 06:30 Dose: 50 mcg Multivitamins (Total B With C -) 1 each PO DAILY [facility] Last Admin: 11/28/18 11:00 Dose: 1 each Pantoprazole Sodium (Protonix -) 40 mg PO DAILY [facility] Last Admin: 11/28/18 11:00 Dose: 40 mg - Objective Vital Signs: Vital Signs Temperature 97.8 F 11/29/18 05:57 Pulse Rate 85 11/29/18 05:57 Respiratory Rate 18 11/29/18 05:57 Blood Pressure 104/72 11/29/18 05:57 O2 Sat by Pulse Oximetry (%) 98 11/29/18 00:19 Labs: CBC, BMP 11/29/18 06:15 11/29/18 06:15 INR, PTT INR 1.02 (0.83-1.09) 11/28/18 02:37
[2018-11-29] MEDS: ENOXAPARIN NA (PORCINE) 40 MG/0.4 ML DISP.SYRIN SQ SCH (09:29)
[2018-11-29] MEDS: VITAMIN B COMPLEX W/C COMBO TABLET (FP) PO SCH (09:29)
[2018-11-29] MEDS: PANTOPRAZOLE 40 MG TABLET (FP) PO SCH (09:29)
[2018-11-29] MEDS: CALCIUM 500MG/VIT-D 200 UNITS COMBO TABLET (FP) PO SCH (09:29)
[2018-11-29 14:16] VITALS: BP 128/79; PULSE 88; TEMP 97.9
--- NOTE | 2018-11-29 15:31 | PN ---
Progress Note, Physician - Current Medication List Current Medications: Active Medications Acetaminophen (Tylenol -) 650 mg PO Q6H PRN PRN Reason: Fever Or Pain Last Admin: 11/29/18 00:15 Dose: 650 mg Atorvastatin Calcium (Lipitor -) 10 mg PO HS [facility] Last Admin: 11/29/18 00:00 Dose: 10 mg Calcium Carbonate/Cholecalciferol (Os-Tim 500+D -) 1 tab PO DAILY [facility] Last Admin: 11/29/18 09:29 Dose: 1 tab Enalapril Maleate (Vasotec -) 2.5 mg PO DAILY [facility] Last Admin: 11/28/18 11:00 Dose: 2.5 mg Enoxaparin Sodium (Lovenox -) 40 mg SQ DAILY [facility] Last Admin: 11/29/18 09:29 Dose: 40 mg Insulin Aspart (Novolog Vial Sliding Scale -) 1 vial SQ [facility]; Protocol Last Admin: 11/29/18 11:13 Dose: 6 unit Levothyroxine Sodium (Synthroid -) 50 mcg PO ACBK [facility] Last Admin: 11/29/18 06:30 Dose: 50 mcg Multivitamins (Total B With C -) 1 each PO DAILY [facility] Last Admin: 11/29/18 09:29 Dose: 1 each Pantoprazole Sodium (Protonix -) 40 mg PO DAILY [facility] Last Admin: 11/29/18 09:29 Dose: 40 mg - Objective Vital Signs: Vital Signs Temperature 97.9 F 11/29/18 14:15 Pulse Rate 88 11/29/18 14:15 Respiratory Rate 18 11/29/18 14:15 Blood Pressure 128/79 11/29/18 14:15 O2 Sat by Pulse Oximetry (%) 100 11/29/18 09:00 Labs: CBC, BMP 11/29/18 06:15 11/29/18 06:15 INR, PTT INR 1.02 (0.83-1.09) 11/28/18 02:37
--- NOTE | 2018-11-29 16:09 | CON.GU ---
Consult Consult Specialty:: Reason for Consultation:: painful bladder - History of Present Illness Chief Complaint: SP pain History of Present Illness: 48 y.o. F PMH chronic UTIs, HTN, HLD, DM, hypothyroidism, chronic mastoiditis, GERD presenting with a frontal headache since 8PM, suprapubic pain, nausea, polyuria and dizziness as per pt's son in law who was translating for her. Patient's headache is dull and localized to frontal region. The suprapubic pain is intermittent and has been present for several months. Pt follow ups regularly with her PCP (Dr. Skinner) last visit 1 week ago. As per pts son in law, pt has followed up regularly with a urologist (Dr. Giorgio Gonzalez)- they have done a full workup with no significant findings for causes of recurrent UTIs or suprapubic pain. cons req. ER course was notable for: (1) 1 bolus NS (2) Unasyn 1.5g IV, d/c'd (3) CT abd/ pel neg; CT head showed evidence of left mastoid effusion indicating possible mastoiditis Recent Travel: denies PAST MEDICAL HISTORY: as above PAST SURGICAL HISTORY: Denies Social History: Denies x3 Smoking: Alcohol: Drugs: Family History: DM in mother & father Allergies No Known Allergies Allergy (Verified 11/28/18 00:47) - Past Medical History Cardio/Vascular: Yes: HTN, Hyperlipdemia Gastrointestinal: Yes: GERD Renal/: Yes: UTI ...LMP: 02/11/18 ...: No Endocrine: Yes: Diabetes Mellitus - Alcohol/Substance Use Hx Alcohol Use: No - Smoking History Smoking history: Never smoked Have you smoked in the past 12 months: No Home Medications - Allergies Allergies/Adverse Reactions: Allergies Allergy/AdvReac Type Severity Reaction Status Date / Time No Known Allergies Allergy Verified 11/28/18 00:47 - Home Medications Home Medications: Ambulatory Orders Enalapril Maleate 2.5 mg PO DAILY 08/04/16 Levothyroxine [Synthroid -] 50 mcg PO DAILY 08/04/16 Nateglinide [Starlix (Nf) -] 120 mg PO TID 08/04/16 Pantoprazole Sodium 40 mg PO DAILY 08/04/16 Sitagliptin Phosphate [Januvia] 100 mg PO DAILY 08/04/16 metFORMIN HCL [Metformin HCl] 500 mg PO BID 08/04/16 Diclofenac Sodium [Voltaren] 100 gm TP ASDIR 10/02/17 Simvastatin [Zocor -] 10 mg PO HS 10/02/17 Calcium Carbonate/Vitamin D3 [Calcium 500 + Vit D Caplet] 1 each PO DAILY Magnesium Oxide [Magox 400] 400 mg PO BID 05/28/18 Vitamin B Complex 1 each PO DAILY 05/28/18 Pentosan Polysulfate Sodium [Elmiron] 100 mg PO TID 11/28/18 Sodium Chloride Tablet - 1 gm PO TID 11/28/18 Acetaminophen [Tylenol .Regular Strength -] 650 mg PO Q6H PRN tablet 11/29/18 Atorvastatin Ca [Lipitor] 10 mg PO HS tablet 11/29/18 B-Complex Tablet 11/29/18 Calcium 500Mg/Vit-D 200 Units [Os-Tim 500+D -] 1 tab PO DAILY tab 11/29/18 Oxybutynin Chloride 10 mg HS 11/29/18 Vitamin B Comp W-C [Total B with C -] 1 each PO DAILY tablet 11/29/18 Physical Exam- Vital Signs: Vital Signs Temperature 97.9 F 11/29/18 14:15 Pulse Rate 88 11/29/18 14:15 Respiratory Rate 18 11/29/18 14:15 Blood Pressure 128/79 11/29/18 14:15 O2 Sat by Pulse Oximetry (%) 100 11/29/18 09:00 Labs: CBC, BMP 11/29/18 06:15 11/29/18 06:15 Imaging - Results Cat Scan: Report Reviewed Problem List - Problems (1) Chronic bladder pain Assessment/Plan: f/u in my office after disch for urodynamics. consider cysto, blader bx and hydrodistention to r/o IC Code(s): R39.82 - CHRONIC BLADDER PAIN (2) UTI (urinary tract infection) Code(s): N39.0 - URINARY TRACT INFECTION, SITE NOT SPECIFIED Qualifiers: Urinary tract infection type: acute cystitis Hematuria presence: without hematuria Qualified Code(s): N30.00 - Acute cystitis without hematuria
--- NOTE | 2018-11-29 17:00 | DS ---
Physical Exam: SUBJECTIVE: Patient seen and examined OBJECTIVE: Vital Signs Period Temp Pulse Resp BP Sys/Dunn Pulse Ox Last 24 Hr 97.6 F-97.9 F 68-91 18-18 98-128/62-79 98-100 PHYSICAL EXAM GENERAL: The patient is awake, alert, and fully oriented, in no acute distress. HEAD: Normal with no signs of trauma. EYES: PERRL, extraocular movements intact, sclera anicteric, conjunctiva clear. No ptosis. ENT: Ears normal, nares patent, oropharynx clear without exudates, moist mucous membranes. NECK: Trachea midline, full range of motion, supple. LUNGS: Breath sounds equal, clear to auscultation bilaterally, no wheezes, no crackles, no accessory muscle use. HEART: Regular rate and rhythm, S1, S2 without murmur, rub or gallop. ABDOMEN: Soft, nontender, nondistended, normoactive bowel sounds, no guarding, no rebound, no hepatosplenomegaly, no masses. EXTREMITIES: 2+ pulses, warm, well-perfused, no edema. NEUROLOGICAL: Cranial nerves II through XII grossly intact. Normal speech, gait not observed. PSYCH: Normal mood, normal affect. SKIN: Warm, dry, normal turgor, no rashes or lesions noted LABS Laboratory Results - last 24 hr 11/28/18 11/29/18 11/29/18 18:02 00:42 06:15 WBC 6.3 RBC 4.10 Hgb 11.8 Hct 33.8 MCV 82.3 MCH 28.7 MCHC 34.9 RDW 14.1 Plt Count 289 MPV 7.1 L Absolute Neuts (auto) 3.4 Neutrophils % 54.1 Lymphocytes % 34.8 Monocytes % 7.7 Eosinophils % 2.6 Basophils % 0.8 Nucleated RBC % 0 Sodium Potassium Chloride Carbon Dioxide Anion Gap BUN Creatinine Est GFR (CKD-EPI)AfAm Est GFR (CKD-EPI)NonAf POC Glucometer 233 190 Random Glucose Calcium Phosphorus Magnesium Total Bilirubin AST ALT Alkaline Phosphatase Total Protein Albumin 11/29/18 11/29/18 11/29/18 06:15 06:28 11:12 WBC RBC Hgb Hct MCV MCH MCHC RDW Plt Count MPV Absolute Neuts (auto) Neutrophils % Lymphocytes % Monocytes % Eosinophils % Basophils % Nucleated RBC % Sodium 133 L Potassium 4.2 Chloride 101 Carbon Dioxide 24 Anion Gap 8 BUN 9.9 Creatinine 0.7 Est GFR (CKD-EPI)AfAm 118.74 Est GFR (CKD-EPI)NonAf 102.45 POC Glucometer 143 298 Random Glucose 136 H Calcium 9.2 Phosphorus 4.8 Magnesium 1.9 Total Bilirubin 0.3 AST 13 L ALT 36 Alkaline Phosphatase 77 Total Protein 7.3 Albumin 3.9 HOSPITAL COURSE: Date of Admission:11/28/18 Date of Discharge: 11/29/18 ASSESSMENT/PLAN: 48 y.o. F PMH chronic UTIs, HTN, HLD, DM, hypothyroidism, chronic mastoiditis, GERD presenting with headache and abdominal pain. #Abdominal pain -Tylenol PRN pain is better now #Headache -CT head shows poss mastoiditis; previous CT hea in July this year shows similar findings Can follow with Dr Wood #Chronic hyponatremia -Restrict free water and sodium inproved. Can liberalize on discharge but will keep at 1200cc of free water -c/w sodium tabs at home and f/u with Dr Tomlinson #HTN -c/w Enalapril 2.5 PO daily (home med) #HLD -c/wSimvastatin 10mg daily (home med) #DM -BGM #Hypothyroidism -C/w synthroid 50mcg daily Stable for discharge home with f/u with Dr Tomlinson Minutes to complete discharge: 30 Discharge Summary Reason For Visit: HYPONATREMIA Hospital Course: Hospital course 48 y.o. F PMH chronic UTIs, HTN, HLD, DM, hypothyroidism, chronic mastoiditis, GERD presenting with headache and abdominal pain. #Abdominal pain -Tylenol PRN pain is better now #Headache -CT head shows poss mastoiditis; previous CT hea in July this year shows similar findings Can follow with Dr Wood #Chronic hyponatremia -Restrict free water and sodium inproved. Can liberalize on discharge but will keep at 1200cc of free water -c/w sodium tabs at home and f/u with Dr Tomlinson #HTN -c/w Enalapril 2.5 PO daily (home med) #HLD -c/wSimvastatin 10mg daily (home med) #DM -BGM #Hypothyroidism -C/w synthroid 50mcg daily - Instructions Diet, Activity, Other Instructions: you were admitted for low sodium. This is chronic for you. Limit your free water to 1500 cc , 1 & 1/2 liters of water per day-this includes juices/drinks that are mainly water. Continue the salt tablets. DO NOT take the antibiotics unless you start having urinary symptons, burming, increased frequency. Follow up with Dr Tomlinson next week in his office-call for an appointment You can start taking youre enalapril tomorrow. If you have return of symtptoms, pain, call Dr Tomlinson's offic or return back to the ED. Referrals: Frank Tomlinson MD [Staff Physician] - Disposition: HOME - Home Medications Comprehensive Discharge Medication List: Ambulatory Orders Enalapril Maleate 2.5 mg PO DAILY 08/04/16 Levothyroxine [Synthroid -] 50 mcg PO DAILY 08/04/16 Nateglinide [Starlix (Nf) -] 120 mg PO TID 08/04/16 Pantoprazole Sodium 40 mg PO DAILY 08/04/16 Sitagliptin Phosphate [Januvia] 100 mg PO DAILY 08/04/16 metFORMIN HCL [Metformin HCl] 500 mg PO BID 08/04/16 Diclofenac Sodium [Voltaren] 100 gm TP ASDIR 10/02/17 Simvastatin [Zocor -] 10 mg PO HS 10/02/17 Calcium Carbonate/Vitamin D3 [Calcium 500 + Vit D Caplet] 1 each PO DAILY Magnesium Oxide [Magox 400] 400 mg PO BID 05/28/18 Vitamin B Complex 1 each PO DAILY 05/28/18 Pentosan Polysulfate Sodium [Elmiron] 100 mg PO TID 11/28/18 Sodium Chloride Tablet - 1 gm PO TID 11/28/18 Acetaminophen [Tylenol .Regular Strength -] 650 mg PO Q6H PRN tablet 11/29/18 Atorvastatin Ca [Lipitor] 10 mg PO HS tablet 11/29/18 B-Complex Tablet 11/29/18 Calcium 500Mg/Vit-D 200 Units [Os-Tim 500+D -] 1 tab PO DAILY tab 11/29/18 Oxybutynin Chloride 10 mg HS 11/29/18 Vitamin B Comp W-C [Total B with C -] 1 each PO DAILY tablet 11/29/18 Problem List - Problems (1) HTN (hypertension) Code(s): I10 - ESSENTIAL (PRIMARY) HYPERTENSION (2) HLD (hyperlipidemia) Code(s): E78.5 - HYPERLIPIDEMIA, UNSPECIFIED (3) Hypothyroid Code(s): E03.9 - HYPOTHYROIDISM, UNSPECIFIED (4) Chronic bladder pain Code(s): R39.82 - CHRONIC BLADDER PAIN (5) Headache Code(s): R51 - HEADACHE Qualifiers: Headache type: unspecified Headache chronicity pattern: acute headache (6) Hyponatremia Code(s): E87.1 - HYPO-OSMOLALITY AND HYPONATREMIA (7) Urinary tract infection symptoms Code(s): R39.9 - UNSP SYMPTOMS AND SIGNS INVOLVING THE GENITOURINARY SYSTEM This patient is new to me today: Yes Date on this admission: 11/29/18 Emergency Visit: Yes ED Registration Date: 11/28/18 Care time: The patient presented to the Emergency Department on the above date and was hospitalized for further evaluation of their emergent condition. Critical Care patient: No - Discharge Referral Referred to [facility] Med P.C.: No
== END 2018-11-29 16:20 | disposition home or self-care (01) | DRG 113 ==
LOC: JER 00:18 → JERBED 04:38 → J7W 22:07
PROVIDERS: ADMIT Internal Medicine; ATTEND Nurse Practitioner Acute Care
DX: H70.92 Unspecified mastoiditis, left ear (principal); R10.9 Unspecified abdominal pain; N30.00 Acute cystitis without hematuria; E87.1 Hypo-osmolality and hyponatremia; I10 Essential (primary) hypertension; E78.5 Hyperlipidemia, unspecified; E11.9 Type 2 diabetes mellitus without complications; E03.9 Hypothyroidism, unspecified; R51 Headache; K21.9 Gastro-esophageal reflux disease without esophagitis; R39.82 Chronic bladder pain
CPT/HCPCS: 36415; 70450-TC; 74177-TC; 80053; 81003; 82550; 82962; 83735; 84100; 84436; 84443; 84484; 84703; 85025; 85610; 93005; 93010; 99285-25; J0131; J7030

== ENCOUNTER 2019-01-08 00:06 | Emergency (ER) | payer OTHER ==
[2019-01-08 00:16] VITALS: BP 149/86; PULSE 82; TEMP 98; BMI 21.4
[2019-01-08] MEDS ORDERED: SODIUM CHLORIDE 1,000 ML IV STA (00:37)
[2019-01-08] MEDS ORDERED: ACETAMINOPHEN 1000 MG/100 ML VIAL (NON FORMULARY) IVPB ONE (00:37)
--- NOTE | 2019-01-08 00:44 | PDOC ---
Attending Attestation - Resident Resident Name: Terese Gupta - ED Attending Attestation I have performed the following: I have examined & evaluated the patient, The case was reviewed & discussed with the resident, I agree w/resident's findings & plan - HPI HPI: 01/08/19 01:52 Pt comes with her usual presentation of UTI and headache and poorly controlled hyponatremia. - Physicial Exam PE: 01/08/19 01:52 Agree with reisdent exam. - Medical Decision Making 01/08/19 03:31 Labs show hypoNa+ and Urine is pending. 01/08/19 04:09 Pt has a nitrite positive urine 01/08/19 07:00 Keflex and home; follow with PMD
[2019-01-08] MEDS ORDERED: ACETAMINOPHEN INJECTION 100 ML IVPB ONE (00:53)
[2019-01-08 01:04] LABS: BASO % 0.8 % (0-2.0); HEMATOCRIT 29.8 % (32.4-45.2); HEMOGLOBIN 10.5 GM/dL (10.7-15.3); LYMPH % 31.8 % (8-40); MCHC 35.3 g/dl (32.0-36.0); MEAN PLT VOLUME 6.8 fl (7.5-11.1); MONO % 6.1 % (3.8-10.2); NEUT % 59.3 % (42.8-82.8); PLATELET COUNT 323 K/MM3 (134-434); RBC 3.64 M/mm3 (3.60-5.2); RDW 14.6 % (11.6-15.6)
--- NOTE | 2019-01-08 01:05 | PDOC ---
History of Present Illness - General Chief Complaint: Headache Stated Complaint: LOW SODIUM Time Seen by Provider: 01/08/19 00:34 History Source: Patient, Family (son in law) Exam Limitations: Language Barrier - History of Present Illness Initial Comments: 01/08/19 01:04 48yo F with PMH of HTN, HLD, DM, Chronic UTIs, Chronic Mastoiditis, Hyponatremia , GERD presenting to ED with complaints of headache. Pt states that she started having UTI symptoms yesterday and started taking an antibiotic prescribed to her by her doctor. Son in law states that when she gets UTIs, she develops headaches and becomes hyponatremic. She presented similarly last month and patient states this feels the same as last time. Headache is frontal and feels like tension. She says the headache was getting worse throughout the day. Headache starts in the neck and radiates to the front but now the headache is just frontal. Denies fevers, chills, changes in vision, numbness/tingling, nausea, vomiting, abdominal pain, weakness, chest pain, sob. She is taking Augmentin and urinary symptoms are resolving. PMD: Uro: Dario PMH: see hpi Meds: see med rec Allergies: nkda Past History - Past Medical History Allergies/Adverse Reactions: Allergies Allergy/AdvReac Type Severity Reaction Status Date / Time No Known Allergies Allergy Verified 01/08/19 00:11 Home Medications: Ambulatory Orders Enalapril Maleate 2.5 mg PO DAILY 08/04/16 Levothyroxine [Synthroid -] 50 mcg PO DAILY 08/04/16 Nateglinide [Starlix (Nf) -] 120 mg PO TID 08/04/16 Pantoprazole Sodium 40 mg PO DAILY 08/04/16 Sitagliptin Phosphate [Januvia] 100 mg PO DAILY 08/04/16 metFORMIN HCL [Metformin HCl] 500 mg PO BID 08/04/16 Diclofenac Sodium [Voltaren] 100 gm TP ASDIR 10/02/17 Simvastatin [Zocor -] 10 mg PO HS 10/02/17 Calcium Carbonate/Vitamin D3 [Calcium 500 + Vit D Caplet] 1 each PO DAILY Magnesium Oxide [Magox 400] 400 mg PO BID 05/28/18 Vitamin B Complex 1 each PO DAILY 05/28/18 Pentosan Polysulfate Sodium [Elmiron] 100 mg PO TID 11/28/18 Sodium Chloride Tablet - 1 gm PO TID 11/28/18 Acetaminophen [Tylenol .Regular Strength -] 650 mg PO Q6H PRN tablet 11/29/18 Atorvastatin Ca [Lipitor] 10 mg PO HS tablet 11/29/18 B-Complex Tablet 11/29/18 Calcium 500Mg/Vit-D 200 Units [Os-Tim 500+D -] 1 tab PO DAILY tab 11/29/18 Oxybutynin Chloride 10 mg HS 11/29/18 Vitamin B Comp W-C [Total B with C -] 1 each PO DAILY tablet 11/29/18 Anemia: No Asthma: No Cancer: No Cardiac Disorders: No CVA: No COPD: No CHF: No Dementia: No Diabetes: Yes GI Disorders: (Gerd) Disorders: Yes (chronic UTIs) HTN: Yes Hypercholesterolemia: Yes Liver Disease: No Seizures: No Thyroid Disease: Yes (HYPO) - Immunization History TDAP Vaccination: No Immunization Up to Date: Yes - Psycho Social/Smoking Cessation Hx Smoking History: Never smoked Have you smoked in the past 12 months: No Information on smoking cessation initiated: No Hx Alcohol Use: No Drug/Substance Use Hx: No Substance Use Type: None Hx Substance Use Treatment: No Review of Systems - Review of Systems Constitutional: No: Symptoms Reported HEENTM: No: Symptoms Reported Respiratory: No: Symptoms reported Cardiac (ROS): No: Symptoms Reported ABD/GI: No: Symptoms Reported : No: Symptoms Reported Musculoskeletal: No: Symptoms Reported Integumentary: No: Symptoms Reported Neurological: Yes: See HPI, Headache *Physical Exam - Vital Signs Last Vital Signs Temp Pulse Resp BP Pulse Ox 98 F 82 17 149/86 98 01/08/19 00:09 01/08/19 00:01/08/19 00:01/08/19 00:01/08/19 00:09 - Physical Exam General Appearance: Yes: Nourished, Appropriately Dressed. No: Apparent Distress HEENT: positive: EOMI, MITCH, Normal ENT Inspection Neck: positive: Trachea midline. negative: Lymphadenopathy (R), Lymphadenopathy (L) Respiratory/Chest: positive: Lungs Clear, Normal Breath Sounds. negative: Crackles, Rales, Rhonchi, Stridor, Wheezing Cardiovascular: positive: Regular Rhythm, Regular Rate, S1, S2. negative: Edema , JVD, Murmur Vascular Pulses: Dorsalis-Pedis (R): 2+, Doralis-Pedis (L): 2+ Gastrointestinal/Abdominal: positive: Normal Bowel Sounds, Soft. negative: Tender Musculoskeletal: negative: CVA Tenderness Extremity: positive: Pelvis Stable. 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 no syncope/coma. ddx incldues but not limited to meningitis, tension headache, medicaiton interaction, migraines, edema low suspicion for meningitis. had similar presentation 1m prior. basic labs, iv fluids, ofirmev labs significant for na 127, near baseline. has h/o hyponatremia. ua negative for acute infection. pt feeling better, asymptomatic hyponatremia, does not rquire hospitalization at this time. safe for dc home. still having slight headache, will give motrin. neurologically intact, will advise to f/u with pcp. agrees to plan. Discharge - Discharge Information Problems reviewed: Yes Clinical Impression/Diagnosis: Hyponatremia Headache Qualifiers: Headache type: unspecified Headache chronicity pattern: unspecified pattern Intractability: not intractable Qualified Code(s): R51 - Headache Condition: Good Disposition: HOME - Admission No - Follow up/Referral Referrals: Claudia Skinner MD [Primary Care Provider] - - Patient Discharge Instructions Patient Printed Discharge Instructions: DI for Hyponatremia, DI for Headache Additional Instructions: You were seen in the emergency room today for headache. The blood tests show that you have low sodium (hyponatremia). I recommend eating a salty diet and restricting the amount of normal water you drink. I recommend mixing salt or drinking tea or Gatorade. Please make an appointment with your doctor next week regarding this ED visit. Come back to the emergency room for worsening headaches, weakness, nausea, vomiting, changes in vision or if any new concerning symptom develops. Thank you - Post Discharge Activity
[2019-01-08 01:37] LABS: ALBUMIN 3.8 g/dl (3.4-5.0); BILIRUBIN,TOTAL 0.6 mg/dL (0.2-1); BLOOD UREA NITROGEN 9.4 mg/dL (7-18); CALCIUM 8.7 mg/dL (8.5-10.1); CREATININE 0.8 mg/dL (0.55-1.3); POTASSIUM 4.3 mmol/L (3.5-5.1); TOT PROT 7.2 g/dl (6.4-8.2)
[2019-01-08] MEDS ORDERED: AMPICILLIN NA/SULBACTAM NA 3 GM in SODIUM CHLORIDE 100 ML IVPB ONE (01:46)
[2019-01-08 03:39] LABS: PH,URINE 6.5 (5.0-8.0); URINE APPEARANCE CLEAR; URINE BILIRUBIN NEGATIVE (NEGATIVE); URINE COLOR DK YELLOW; URINE GLUCOSE (UA) 1+ (NEGATIVE); URINE KETONE NEGATIVE (NEGATIVE); URINE LEUK ESTERASE NEGATIVE (NEGATIVE); URINE NITRITE POSITIVE (NEGATIVE); URINE PROTEIN NEGATIVE (NEGATIVE)
[2019-01-08 03:41] LABS: EPI CELLS 1.2 /HPF (0-5/HPF); URINE RBC 0.1 /hpf (0-4); URINE WBC 0.8 /hpf (0-5)
[2019-01-08 03:42] LABS: HYALINE CASTS 0.35 /lpf (0-8); URINE BACTERIA 0.2 /hpf (NEGATIVE)
[2019-01-08] MEDS ORDERED: IBUPROFEN 600 MG TABLET (FP) PO ONE ×2 (03:47→03:49)
[2019-01-08] MEDS ORDERED: METOCLOPRAMIDE HCL INJECTION 10 MG/2 ML VIAL IVPUSH ONE (04:13)
[2019-01-08] MEDS ORDERED: METOCLOPRAMIDE HCL INJECTION 10 MG/2 ML VIAL ONE (04:15)
== END 2019-01-08 04:47 | disposition home or self-care (01) ==
LOC: JER 00:06
PROC: 3E03329 Introduction of Other Anti-infective into Peripheral Vein, Percutaneous Approach (ICD-10-PCS; principal; 2019-01-08)
PROC: 3E033NZ Introduction of Analgesics, Hypnotics, Sedatives into Peripheral Vein, Percutaneous Approach (ICD-10-PCS; 2019-01-08)
PROC: 3E033GC Introduction of Other Therapeutic Substance into Peripheral Vein, Percutaneous Approach (ICD-10-PCS; 2019-01-08)
DX: E87.1 Hypo-osmolality and hyponatremia (principal); R51 Headache; I10 Essential (primary) hypertension; E78.5 Hyperlipidemia, unspecified; E11.9 Type 2 diabetes mellitus without complications; Z79.84 Long term (current) use of oral hypoglycemic drugs; K21.9 Gastro-esophageal reflux disease without esophagitis; E78.00 Pure hypercholesterolemia, unspecified; H70.10 Chronic mastoiditis, unspecified ear; Z87.440 Personal history of urinary (tract) infections
CPT/HCPCS: 36415; 80053; 81003; 82962; 85025; 87086; 96365; 96375; 99282-25; J0131; J7030

== ENCOUNTER 2021-11-06 09:05 | Day surgery (SDC) | payer OTHER ==
[2021-11-04 13:17] VITALS: BMI 22.6
[2021-11-06] MEDS ORDERED: oxyCODONE HCL 5 MG TABLET PO PRN ×2 (09:22)
[2021-11-06] MEDS ORDERED: ONDANSETRON 4 MG/2 ML VIAL IVPUSH PRN (09:22)
[2021-11-06] MEDS ORDERED: LACTATED RINGERS SOLUTION 1,000 ML IV SCH (09:30)
[2021-11-06] MEDS ORDERED: DEXAMETHASONE SOD PHOSPHATE 4 MG/1 ML VIAL ONE (09:42)
[2021-11-06] MEDS ORDERED: KETOROLAC TROMETHAMINE 30 MG/1 ML VIAL ONE (09:42)
[2021-11-06] MEDS ORDERED: ONDANSETRON 4 MG/2 ML VIAL ONE (09:42)
[2021-11-06] MEDS ORDERED: MIDAZOLAM HCL 2 MG/2 ML SINGLE DOSE VIAL ONE (09:42)
[2021-11-06] MEDS ORDERED: PROPOFOL 20 ML ONE (09:42)
[2021-11-06 09:55] VITALS: TEMP 97.8
[2021-11-06] MEDS ORDERED: LIDOCAINE HCL 2% (20ML MULTI-DOSE VIAL) ONE (10:10)
[2021-11-06 16:56] VITALS: RESP 17
[2021-11-06 17:03] VITALS: BP 95/60; PULSE 84
== END 2021-11-06 11:45 | disposition home or self-care (01) ==
LOC: FASU 09:05
PROVIDERS: ATTEND Orthopaedic Surgery Hand Surgery
PROC: 0LN80ZZ Release Left Hand Tendon, Open Approach (ICD-10-PCS; principal; 2021-11-06 10:45)
DX: M65.312 Trigger thumb, left thumb (principal)
CPT/HCPCS: 82962

== ENCOUNTER 2022-09-30 16:46 | Emergency (ER) | payer OTHER ==
[2022-09-30 16:55] VITALS: RESP 16; TEMP 98.2; BMI 23.0
[2022-09-30] MEDS ORDERED: SODIUM CHLORIDE 0.9% 500 ML INFUS.BAG IV ONE (17:29)
[2022-09-30] MEDS ORDERED: ACETAMINOPHEN 1000 MG/100 ML BAG IVPB ONE (17:29)
[2022-09-30] MEDS ORDERED: ACETAMINOPHEN INJECTION 100 ML IVPB ONE (18:22)
[2022-09-30 18:52] LABS: BASO % 0.3 % (0-2.0); EOS % 1.3 % (0-4.5); HEMATOCRIT 33.8 % (32.4-45.2); HEMOGLOBIN 11.2 GM/dL (10.7-15.3); LYMPH % 26.2 % (8-40); MCH 28.6 pg (25.7-33.7); MCHC 33.1 g/dl (32.0-36.0); MEAN CELL VOLUME 86.4 fl (80-96); MEAN PLT VOLUME 8.3 fl (7.5-11.1); MONO % 7.7 % (3.8-10.2); NEUT % 64.5 % (42.8-82.8); PLATELET COUNT 222 10^3/uL (134-434); RBC 3.92 M/mm3 (3.60-5.2); RDW 12.9 % (11.6-15.6); WHITE BLOOD COUNT 8.2 K/mm3 (4.0-10.0)
[2022-09-30 19:01] LABS: INR 1.02 (0.83-1.09); PROTHROMBIN TIME (PATIENT) 11.8 SEC (9.7-13.0)
[2022-09-30 19:04] LABS: ACTIVATED PTT 26.3 SECONDS (25.2-36.5)
[2022-09-30 19:05] LABS: URINE APPEARANCE CLEAR; URINE BILIRUBIN NEGATIVE (NEGATIVE); URINE COLOR YELLOW; URINE GLUCOSE (UA) 3+ (NEGATIVE); URINE KETONE NEGATIVE (NEGATIVE); URINE LEUK ESTERASE NEGATIVE (NEGATIVE); URINE NITRITE NEGATIVE (NEGATIVE); URINE PROTEIN NEGATIVE (NEGATIVE); URINE UROBILINOGEN 0.2 mg/dL (0.2-1.0)
[2022-09-30 19:13] LABS: POTASSIUM 4.1 mmol/L (3.5-5.1)
[2022-09-30 19:16] LABS: CALCIUM 9.7 mg/dL (8.5-10.1)
[2022-09-30 19:17] LABS: ALBUMIN 3.6 g/dl (3.4-5.0); BLOOD UREA NITROGEN 12.8 mg/dL (7-18); MAGNESIUM 2.3 mg/dL (1.8-2.4)
[2022-09-30 19:21] LABS: BILIRUBIN,TOTAL 0.4 mg/dL (0.2-1); TOT PROT 7.2 g/dl (6.4-8.2)
[2022-09-30 19:47] VITALS: BP 122/74; PULSE 82
== END 2022-09-30 20:30 | disposition home or self-care (01) ==
LOC: JER 16:46
PROC: 3E033NZ Introduction of Analgesics, Hypnotics, Sedatives into Peripheral Vein, Percutaneous Approach (ICD-10-PCS; principal; 2022-09-30)
DX: I95.9 Hypotension, unspecified (principal); R53.1 Weakness; R51.9 Headache, unspecified; R50.9 Fever, unspecified; R53.81 Other malaise; R11.2 Nausea with vomiting, unspecified; Z20.822 Contact with and (suspected) exposure to COVID-19
CPT/HCPCS: 0241U-QW; 36415; 71045-TC-FY; 80053; 81003; 82962; 83735; 84484; 85025; 85610; 85730; 87086; 93005; 93010; 99285-25